=== PATIENT | female | born 1945 | race Caucasian/White ===

== ENCOUNTER → 2017-02-07 | Outpatient (CLI) | payer MEDICARE ==
--- NOTE | 2017-02-07 13:35 | MM ---
Reason for exam: screening (asymptomatic). Last mammogram was performed 1 year and 1 month ago. History: Patient is postmenopausal. Family history of premenopausal breast cancer in sister at age 40. Benign US right core biopsy of the right breast, August 09, 2005. Benign US right core biopsy of the right breast, August 09, 2005. Excisional biopsy of the left breast, November 26, 2003. Excisional biopsy of the right breast, November 26, 2003. Benign excisional biopsy of both breasts, 1970. Took hormonal contraceptives for 1 year beginning at age 23. Physical Findings: A clinical breast exam by your physician is recommended on an annual basis and results should be correlated with mammographic findings. MG Screening Mammo w CAD Bilateral CC and MLO view(s) were taken. Prior study comparison: January 17, 2016, bilateral MG screening mammo w CAD. December 30, 2014, bilateral MG screening mammo w CAD. The breast tissue is heterogeneously dense. This may lower the sensitivity of mammography. Stable benign calcifications. There is chronic nodularity bilaterally. There is no dominant lesion. No significant changes when compared with prior studies. ASSESSMENT: Benign, BI-RAD 2 RECOMMENDATION: Routine screening mammogram of both breasts in 1 year.
--- NOTE | 2017-02-07 13:44 | BD ---
EXAMINATION TYPE: MG DEXA axial skeleton. DATE OF EXAM: 02/07/2017 COMPARISON: NONE CLINICAL HISTORY: M81.0 Osteoporosis Height: 5 FT Weight: 134 FRAX RISK QUESTIONS: Alcohol (3 or more units per day): NO Family History (Parent hip fracture): NO Glucocorticoids (More than 3mos): NO (Ex: prednisone, prednisolone, methylprednisolone, dexamethasone, and hydrocortisone). History of Fracture in Adulthood: NO Secondary Osteoporosis: 1. Type 1 Diabetes: NO 2. Hyperthyroidism: NO 3. Menopause before 45: NO 4. Malnutrition: NO 5. Chronic liver disease: NO Rheumatoid Arthritis: NO Current Tobacco Use: NO RISK FACTORS HISTORY OF: Family History of Osteoporosis: YES Active: YES Postmenopausal woman: AGE 51 MEDICATIONS: Additional Medications: ASPIRIN, METFORMIN,BENICAR HCT, ATORVASTATIN, CALCIUM, IRON Additional History: EXAM MEASUREMENTS: Bone mineral densitometry was performed using the [employer] System. Bone mineral density as measured about the Lumbar spine is: ----- L1-L4(G/cm2): 1.157 T Score Values are as follows: ----- L2: -0.1 ----- L3: 0.3 ----- L4: -0.1 ----- L1-L4: -0.2 Bone mineral density has: INCREASED 2.5 % since study of: 2014 Bone mineral density about the R hip (g/cm2): 0.864 Bone mineral density about the L hip (g/cm2): 0.824 T Score values are as follows: -----R Neck: -1.3 -----L Neck: -1.5 -----R Total: -0.7 -----L Total: -0.9 Bone mineral density has: DECREASED -0.7% since study of: 2014 IMPRESSION: No evidence for osteoporosis or osteopenia NOTE: T-SCORE=SD OF THE YOUNG ADULT MEAN.
== END | disposition home or self-care (01) ==
LOC: RADMAMWWP 10:49
PROVIDERS: ATTEND Internal Medicine
DX: Z12.31 Encounter for screening mammogram for malignant neoplasm of breast (principal); M81.0 Age-related osteoporosis without current pathological fracture
CPT/HCPCS: 77080; G0202

== ENCOUNTER → 2018-03-03 | Outpatient (CLI) | payer MEDICARE ==
--- NOTE | 2018-03-06 17:02 | MM ---
Reason for exam: screening (asymptomatic). Last mammogram was performed 1 year and 1 month ago. History: Patient is postmenopausal. Family history of premenopausal breast cancer in sister at age 40. Benign US right core biopsy of the right breast, August 09, 2005. Benign US right core biopsy of the right breast, August 09, 2005. Excisional biopsy of the left breast, November 26, 2003. Excisional biopsy of the right breast, November 26, 2003. Benign excisional biopsy of both breasts, 1970. Took hormonal contraceptives for 1 year beginning at age 23. MG Screening Mammo w CAD Bilateral CC and MLO view(s) were taken. Prior study comparison: February 07, 2017, bilateral MG screening mammo w CAD. January 17, 2016, bilateral MG screening mammo w CAD. The breast tissue is heterogeneously dense. This may lower the sensitivity of mammography. There are benign-appearing bilateral calcifications. A right breast marker is noted. There is a focal asymmetry of the right breast upper outer quadrant at middle depth. To suspicious left breast abnormality. ASSESSMENT: Incomplete: need additional imaging evaluation, BI-RAD 0 RECOMMENDATION: Special view mammogram of the right breast.
== END | disposition home or self-care (01) ==
LOC: RADMAMWWP 10:45
PROVIDERS: ATTEND Internal Medicine
DX: Z12.31 Encounter for screening mammogram for malignant neoplasm of breast (principal)
CPT/HCPCS: 77067

== ENCOUNTER → 2018-03-19 | Outpatient (CLI) | payer MEDICARE ==
--- NOTE | 2018-03-21 12:03 | MM ---
Reason for exam: additional evaluation requested from abnormal screening. Last mammogram was performed 1 month ago. History: Patient is postmenopausal. Family history of premenopausal breast cancer in sister at age 40. Benign US right core biopsy of the right breast, August 09, 2005. Benign US right core biopsy of the right breast, August 09, 2005. Excisional biopsy of the left breast, November 26, 2003. Excisional biopsy of the right breast, November 26, 2003. Benign excisional biopsy of both breasts, 1970. Took hormonal contraceptives for 1 year beginning at age 23. Physical Findings: Nurse did not find any significant physical abnormalities on exam. MG Work Up Mamm w CAD RT Spot compression CC, spot compression MLO, and ML view(s) were taken of the right breast. Prior study comparison: March 03, 2018, bilateral MG screening mammo w CAD. February 07, 2017, bilateral MG screening mammo w CAD. The breast tissue is heterogeneously dense. This may lower the sensitivity of mammography. Previous mammotome biopsy in the right breast x 2 in upper outer quadrant and 12-12:30. There is chronic nodularity in the right breast. Nodular focal asymmetry 11-11:30 at a middle depth partially disperses on spot views. These results were verbally communicated with the patient and result sheet given to the patient on 03/19/18. ASSESSMENT: Incomplete: need additional imaging evaluation, BI-RAD 0 RECOMMENDATION: Ultrasound of both breasts. right targeted 11-11:30
--- NOTE | 2018-03-21 12:05 | USB ---
Reason for exam: additional evaluation requested from abnormal screening. History: Patient is postmenopausal. Family history of premenopausal breast cancer in sister at age 40. Benign US right core biopsy of the right breast, August 09, 2005. Benign US right core biopsy of the right breast, August 09, 2005. Excisional biopsy of the left breast, November 26, 2003. Excisional biopsy of the right breast, November 26, 2003. Benign excisional biopsy of both breasts, 1970. Took hormonal contraceptives for 1 year beginning at age 23. US Breast Workup Limited ANABELL Right limited breast ultrasound including focal area of concern, retroareolar and axilla demonstrates a 1.0 x 0.7 x 0.8cm oval, cystic lesion at 10 o'clock, benign, uncertain if this corresponds to the mammographic area of concern which was closer to 11 o'clock, 6 month follow up recommended. Left limited breast ultrasound including focal area of concern, retroareolar and axilla demonstrates a 1.6 x 1.0 x 1.5cm oval, palpable lesion at 12 o'clock BB, corresponds to benign fat necrosis seen on screening mammogram. These results were verbally communicated with the patient and result sheet given to the patient on 03/19/18. ASSESSMENT: Probably benign, BI-RAD 3 RECOMMENDATION: Follow-up diagnostic mammogram of the right breast in 6 months.
== END | disposition home or self-care (01) ==
LOC: RADMAMWWP 13:28
PROVIDERS: ATTEND Internal Medicine
DX: R92.8 Other abnormal and inconclusive findings on diagnostic imaging of breast (principal)
CPT/HCPCS: 77065

== ENCOUNTER → 2018-09-23 | Outpatient (CLI) | payer MEDICARE ==
--- NOTE | 2018-09-23 11:32 | MM ---
Reason for exam: additional evaluation requested from prior study. Last mammogram was performed 6 months ago. History: Patient is postmenopausal. Family history of premenopausal breast cancer in sister at age 40. Benign US right core biopsy of the right breast, August 09, 2005. Benign US right core biopsy of the right breast, August 09, 2005. Excisional biopsy of the left breast, November 26, 2003. Excisional biopsy of the right breast, November 26, 2003. Benign excisional biopsy of both breasts, 1970. Took hormonal contraceptives for 1 year beginning at age 23. Physical Findings: Nurse did not find any significant physical abnormalities on exam. MG Diagnostic Mammo RT w CAD CC and MLO view(s) were taken of the right breast. Prior study comparison: March 19, 2018, right breast MG work up mamm w CAD RT. March 03, 2018, bilateral MG screening mammo w CAD. The breast tissue is heterogeneously dense. This may lower the sensitivity of mammography. No new suspicious abnormality. Stable right upper outer quadrant focal asymmetry at middle depth 11 o'clock. No prior sonographic correlate. These results were verbally communicated with the patient and result sheet given to the patient on 09/23/18. ASSESSMENT: Probably benign, BI-RAD 3 RECOMMENDATION: Follow-up diagnostic mammogram of both breasts in 6 months. Back on schedule.
== END | disposition home or self-care (01) ==
LOC: RADMAMWWP 09:27
PROVIDERS: ATTEND Internal Medicine
DX: R92.2 Inconclusive mammogram (principal)
CPT/HCPCS: 77065

== ENCOUNTER → 2019-03-19 | Outpatient (CLI) | payer MEDICARE ==
--- NOTE | 2019-03-19 10:16 | MM ---
Reason for exam: follow-up at short interval from prior study. Last mammogram was performed 6 months ago. History: Patient is postmenopausal. Family history of premenopausal breast cancer in sister at age 40. Benign US right core biopsy of the right breast, August 09, 2005. Benign US right core biopsy of the right breast, August 09, 2005. Excisional biopsy of the left breast, November 26, 2003. Excisional biopsy of the right breast, November 26, 2003. Benign excisional biopsy of both breasts, 1970. Took hormonal contraceptives for 1 year beginning at age 23. Physical Findings: Nurse did not find any significant physical abnormalities on exam. MG Diagnostic Mammo w CAD ANABELL Bilateral CC and MLO view(s) were taken. Prior study comparison: September 23, 2018, right breast MG diagnostic mammo RT w CAD. March 19, 2018, right breast MG work up mamm w CAD RT. The breast tissue is heterogeneously dense. This may lower the sensitivity of mammography. Benign appearing bilateral calcifications. No suspicious abnormality. Right biopsy markers noted. These results were verbally communicated with the patient and result sheet given to the patient on 03/19/19. ASSESSMENT: Benign, BI-RAD 2 RECOMMENDATION: Routine screening mammogram of both breasts in 1 year.
== END | disposition home or self-care (01) ==
LOC: RADMAMWWP 09:27
PROVIDERS: ATTEND Internal Medicine
DX: R92.2 Inconclusive mammogram (principal)
CPT/HCPCS: 77066

== ENCOUNTER → 2019-09-29 | Outpatient (CLI) | payer MEDICARE ==
--- NOTE | 2019-09-29 14:53 | US ---
EXAMINATION TYPE: US kidneys/renal and bladder DATE OF EXAM: 09/29/2019 COMPARISON: 08/08/2015 CLINICAL HISTORY: Chronic kidney disease stage 3 N18.3. EXAM MEASUREMENTS: Right Kidney: 9.0 x 4.8 x 4.4 cm Left Kidney: 9.7 x 4.6 x 4.5 cm Right Kidney: No hydronephrosis or masses seen. Loss of corticomedullary differentiation Left Kidney: No hydronephrosis or masses seen. Loss of corticomedullary differentiation Bladder: wnl Bilateral Jets seen: Yes IMPRESSION: 1. 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 Correlate for chronic medical renal dise ase. 2. No hydronephrosis or nephrolithiasis. Previously described left renal cyst is not seen on today's exam.
== END | disposition home or self-care (01) ==
LOC: RADUSWWP 13:29
PROVIDERS: ATTEND Internal Medicine
DX: N18.3 Chronic kidney disease, stage 3 (moderate) (principal)
CPT/HCPCS: 76770

== ENCOUNTER → 2020-04-13 | Outpatient (CLI) | payer MEDICARE ==
--- NOTE | 2020-04-13 18:46 | BD ---
EXAMINATION TYPE: Axial Bone Density DATE OF EXAM: 04/13/2020 COMPARISON: 01/18/2017 CLINICAL HISTORY: Postmenopausal screening Height: 5 FT 1 IN Weight: 140 FRAX RISK QUESTIONS: Alcohol (3 or more units per day): NO Family History (Parent hip fracture): NO Glucocorticoids (More than 3mos): NO (Ex: prednisone, prednisolone, methylprednisolone, dexamethasone, and hydrocortisone). History of Fracture in Adulthood: NO Secondary Osteoporosis: 1. Type 1 Diabetes: NO 2. Hyperthyroidism: NO 3. Menopause before 45: NO 4. Malnutrition: NO 5. Chronic liver disease: NO Rheumatoid Arthritis: NO Current Tobacco Use: NO RISK FACTORS HISTORY OF: Family History of Osteoporosis: YES Active: YES Diet low in dairy products/other sources of calcium: NO Postmenopausal woman: AGE 51 Take estrogen and/or progesterone medications: NONE Lost more than 2 inches in height since high school: NO MEDICATIONS: Additional Medications: METFORMIN, ATORVASTATIN, BLOOD PRESSURE MEDS, ASPIRIN, Additional History: EXAM MEASUREMENTS: Bone mineral densitometry was performed using the [employer] System. Bone mineral density as measured about the Lumbar spine is: ----- L1-L4(G/cm2): 1.128 T Score Values are as follows: ----- L2: -0.9 ----- L3: 0.1 ----- L4: -0.4 ----- L1-L4: -0.4 Bone mineral density has: DECREASED -3.9 % since study of: 2016 Bone mineral density about the R hip (g/cm2): 0.833 Bone mineral density about the L hip (g/cm2): 0.849 T Score values are as follows: -----R Neck: -1.5 -----L Neck: -1.4 -----R Total: -1.1 -----L Total: -0.9 Bone mineral density has: DECREASED -2.5 % since study of: 2016 IMPRESSION: Osteopenia (T Score between -2.5 and -1). There is slightly increased risk of fracture and the patient may be considered for treatment. Re-Screen 2-5 years. NOTE: T-SCORE=SD OF THE YOUNG ADULT MEAN.
== END | disposition home or self-care (01) ==
LOC: RADBDWWP 09:14
PROVIDERS: ATTEND Internal Medicine
DX: M85.80 Other specified disorders of bone density and structure, unspecified site (principal); M81.0 Age-related osteoporosis without current pathological fracture
CPT/HCPCS: 77080

== ENCOUNTER → 2020-05-16 | Outpatient (CLI) | payer MEDICARE ==
--- NOTE | 2020-05-19 11:03 | MM ---
Reason for exam: screening (asymptomatic). Last mammogram was performed 1 year and 2 months ago. History: Patient is postmenopausal. Family history of premenopausal breast cancer in sister at age 40. Benign US right core biopsy of the right breast, August 09, 2005. Benign US right core biopsy of the right breast, August 09, 2005. Excisional biopsy of the left breast, November 26, 2003. Excisional biopsy of the right breast, November 26, 2003. Benign excisional biopsy of both breasts, 1970. Took hormonal contraceptives for 1 year beginning at age 23. Physical Findings: A clinical breast exam by your physician is recommended on an annual basis and results should be correlated with mammographic findings. MG Screening Mammo w CAD Bilateral CC and MLO view(s) were taken. Prior study comparison: March 19, 2019, bilateral MG diagnostic mammo w CAD ANABELL. September 23, 2018, right breast MG diagnostic mammo RT w CAD. The breast tissue is heterogeneously dense. This may lower the sensitivity of mammography. Previous mammotome biopsy in the right breast x 2. Stable bilateral breast complexity with areas of nodularity and asymmetric densities. Chronic fat necrosis calcifications on the left. No significant changes when compared with prior studies. ASSESSMENT: Benign, BI-RAD 2 RECOMMENDATION: Routine screening mammogram of both breasts in 1 year.
== END | disposition home or self-care (01) ==
LOC: RADMAMWWP 14:51
PROVIDERS: ATTEND Internal Medicine
DX: Z12.31 Encounter for screening mammogram for malignant neoplasm of breast (principal)
CPT/HCPCS: 77067

== ENCOUNTER → 2021-04-27 | Outpatient (CLI) | payer MEDICARE ==
--- NOTE | 2021-04-27 09:42 | CT ---
EXAMINATION TYPE: CT chest wo con DATE OF EXAM: 04/27/2021 INDICATION: HYPERVITAMINOSIS D CT DLP: 535 mGy.cm Automated Exposure Control for Dose Reduction was Utilized. TECHNIQUE AND CONTRAST: CT scan of the chest without IV contrast administration. COMPARISON: No previous CT scan is available for comparison. FINDINGS: Minimal bilateral linear basal pulmonary atelectasis. Minimal bilateral apical fibrotic changes. Unre markable lungs otherwise. No sizable pleural effusion or definite pneumothorax. Patent central airway s. No gross cardiomegaly. Arterial atherosclerotic calcification with coronary arterial calcifications. No pericardial effusion . No pathologically enlarged lymph nodes in the chest. Slightly dilated inferior aspect of the esopha luna without wall thickening, nonspecific. Cortical hyperdense lesion is seen arising from the medial aspect of the right kidney measuring up to 10 x 16 mm, incompletely characterized and could represent a hemorrhagic cyst however solid lesion c an't be excluded. Recommend further ultrasound assessment. Previous cholecystectomy. Fatty infiltration of the pancreatic head. Bilateral breast calcifications, please correlate with breast ultrasound/mammography results. Multilevel vertebral body hemangiomas. No aggressive bone lesion. IMPRESSION: 1. No significant pulmonary abnormality or thoracic lymphadenopathy. 2. Right renal cortical hyperdense lesion as described above, incompletely characterized and could re present a hemorrhagic cyst however solid lesion cannot be excluded. Recommend further targeted ultras ound assessment. If inconclusive, further CT scan (renal protocol) or renal MRI can be considered. Ot her incidental findings as described above. A [place] level critical message alert has been initiated for Stephan Head MD via the [employer] Critical Results System on 04/27/2021 9:40 AM. This message alert has been sent to Setphan Head MD via the preferences provided by the clinician for the receipt of Radiology Critical Findings. Message ID [id number].
== END | disposition home or self-care (01) ==
LOC: RADCTMAIN 09:00
PROVIDERS: ATTEND Internal Medicine
DX: E67.3 Hypervitaminosis D (principal)
CPT/HCPCS: 71250

== ENCOUNTER → 2021-05-04 | Outpatient (CLI) | payer MEDICARE ==
--- NOTE | 2021-05-04 14:43 | CT ---
EXAMINATION TYPE: CT heart w calcium score DATE OF EXAM: 05/04/2021 COMPARISON: Chest CT one week ago. HISTORY: Screening for cardiovascular disorder. 213.9 CT DLP: 47.1 mGycm Automated exposure control for dose reduction was used. CT CALCIUM SCORING Coronary calcium is a marker for plaque (fatty deposits) in a blood vessel or atherosclerosis (harden ing of the arteries). The presence and amount of calcium detected in a coronary artery by the CT sca n, indicates the presence and amount of atherosclerotic plaque. These calcium deposits appear years before the development of heart disease symptoms such as chest pain and shortness of breath. A calcium score is computed for each of the coronary arteries based upon the volume and density of th e calcium deposits. This can be referred to as your calcified plaque burden. It does not correspond directly to the percentage of narrowing in the artery but does correlate with the severity of the un derlying coronary atherosclerosis. PROCEDURE TECHNIQUE - Prospective Gating was used. Slice thickness: 3mm. Density threshold (HU): 130, Pixel threshold: 3, Algorithm: discrete. RESULTS Region: LM Calcium Score ([place]at[place]): 0 Volume (mm3): 0 Mass (g): 0 Region: RCA Calcium Score ([place]): 0 Volume (mm3): 0 Mass (g): 0 Region: LAD Calcium Score ([place]at[place]): 261.52 Volume (mm3): 196.56 Mass (g): 65.52 Region: CX Calcium Score ([place]at[place]): 0 Volume (mm3): 0 Mass (g): 0 Region: PDA Calcium Score ([place]atston): 0 Volume (mm3): 0 Mass (g): 0 Total: Calcium Score (Agatston): 261.52 Volume (mm3): 196.56 Mass (g): 65.52 Incidental findings: None. IMPRESSION: Calcium Score: 101-400 Implication: Definite, at least moderate atherosclerotic plaque. Risk of Coronary Artery Disease: Mild coronary artery disease highly likely, significant narrowings p ossible CALCIUM SCORE IMPLICATION RISK OF C ORONARY ARTERY DISEASE 0 No identifiable plaque Very low, generally less than 5% 1-10 Minimal identifiable plaque Very unlikely, less than 10% 11-100 Definite, at least mild atherosclerotic plaque Mild or m inimal coronary narrowings likely 101-400 Definite, at least moderate atherosclerotic plaque Mild coronary ar dori disease highly likely, significant narrowing possible 401 or Higher Extensive atherosclerotic plaque High lik elihood of at least one significant coronary narrowing
== END | disposition home or self-care (01) ==
LOC: RADCTMAIN 14:03
PROVIDERS: ATTEND Internal Medicine
DX: Z13.6 Encounter for screening for cardiovascular disorders (principal); I25.10 Atherosclerotic heart disease of native coronary artery without angina pectoris
CPT/HCPCS: 75571

== ENCOUNTER → 2021-05-30 | Outpatient (CLI) | payer MEDICARE ==
--- NOTE | 2021-05-30 15:51 | US ---
EXAMINATION TYPE: US kidneys/renal and bladder DATE OF EXAM: 05/30/2021 COMPARISON: 09/29/2019 CLINICAL HISTORY: 75-year-old female N28.9 DISORDER KIDNEY AND URETER. TECHNIQUE: Multiple sonographic images of the kidneys and bladder are obtained. FINDINGS: EXAM MEASUREMENTS: Right Kidney: 9.7 x 4.7 x 3.6 cm Left Kidney: 9.5 x 4.5 x 3.5 cm Right Kidney: echogenic, thin renal cortex. No hydronephrosis. Left Kidney: Renal cortical thinning. There is a lower pole cortical cyst measuring 1.7 x 1.7 x 2.0cm Bladder: wnl Bilateral Jets seen: no IMPRESSION: Changes of bilateral chronic medical renal disease. No hydronephrosis. Benign 2.0 cm cortical cyst lo wer pole left kidney.
== END | disposition home or self-care (01) ==
LOC: RADUSWWP 12:07
PROVIDERS: ATTEND Internal Medicine
DX: N28.9 Disorder of kidney and ureter, unspecified (principal)
CPT/HCPCS: 76770

== ENCOUNTER → 2021-06-08 | Outpatient (CLI) | payer MEDICARE ==
--- NOTE | 2021-06-09 14:26 | MM ---
Reason for exam: screening (asymptomatic). Last mammogram was performed 1 year and 1 month ago. History: Patient is postmenopausal. Family history of premenopausal breast cancer in sister at age 40. Benign US right core biopsy of the right breast, August 09, 2005. Benign US right core biopsy of the right breast, August 09, 2005. Excisional biopsy of the left breast, November 26, 2003. Excisional biopsy of the right breast, November 26, 2003. Benign excisional biopsy of both breasts, 1970. Took hormonal contraceptives for 1 year beginning at age 23. Physical Findings: A clinical breast exam by your physician is recommended on an annual basis and results should be correlated with mammographic findings. MG 3D Screening Mammo W/Cad Bilateral CC and MLO view(s) were taken. Prior study comparison: May 16, 2020, bilateral MG screening mammo w CAD. March 19, 2019, bilateral MG diagnostic mammo w CAD ANABELL. The breast tissue is heterogeneously dense. This may lower the sensitivity of mammography. No significant changes when compared with prior studies. ASSESSMENT: Benign, BI-RAD 2 RECOMMENDATION: Routine screening mammogram of both breasts in 1 year.
== END | disposition home or self-care (01) ==
LOC: RADMAMWWP 10:01
PROVIDERS: ATTEND Internal Medicine
DX: Z12.31 Encounter for screening mammogram for malignant neoplasm of breast (principal)
CPT/HCPCS: 77063; 77067

== ENCOUNTER 2022-01-16 07:54 | Day surgery (SDC) | payer MEDICARE ==
[2022-01-10 08:49] VITALS: BMI 26.5
[2022-01-16] MEDS ORDERED: LACTATED RINGERS 1,000 ML IV SCH (08:17)
[2022-01-16 08:38] VITALS: TEMP 97.9
[2022-01-16 08:54] LABS: Glucose,Whole Blood 99 mg/dL (70-110)
[2022-01-16] MEDS ORDERED: PROPOFOL 10 MG/ML 20 ML VIAL IV ONE (09:30)
--- NOTE | 2022-01-16 09:51 | P.PCN ---
Date of Procedure: 01/16/22 Procedure(s) Performed: BRIEF HISTORY: Patient is a 76-year-old pleasant white female scheduled for an elective colonoscopy as a part of screening for colon cancer/positive cologuard. PROCEDURE PERFORMED: Colonoscopy with snare polypectomy. PREOPERATIVE DIAGNOSIS: Screening for colon cancer/positive cologuard. IV sedation per Anesthesia. PROCEDURE: After informed consent was obtained, the patient, was brought into the endoscopy unit. IV sedation was administered by Anesthesia under continuous monitoring. Digital rectal examination was normal. Initially the Olympus CF-160 flexible video colonoscope was then inserted in the rectum, gradually advanced into the cecum without any difficulty. Careful examination was performed as the scope was gradually being withdrawn. Ileocecal valve and the appendiceal orifice were visualized and appeared normal. Prep was excellent. Mucosa of the cecum, appeared normal. In the ascending colon there was a 3-4 mm polyp that was removed by snare polypectomy. Rest of the ascending colon, transverse colon appeared normal. In the distal transverse colon there was a 7-8 mm sessile polyp removed by snare polypectomy. Rest of the, descending colon, sigmoid colon, and rectum appeared normal. Retroflexion was performed in the rectum and small internal hemorrhoids were seen. The patient tolerated the procedure well. IMPRESSION: 3-4 mm ascending colon polyp status post polypectomy 7-8 mm transverse colon polyp status post polypectomy Small internal hemorrhoids RECOMMENDATIONS: Findings of this examination were discussed with the patient well as her family. She was advised to follow with the biopsy results. If the biopsy reveals adenoma she can have a repeat colonoscopy in 5 years.
[2022-01-16 09:53] VITALS: RESP 16
[2022-01-16 10:07] VITALS: BP 133/66; PULSE 81
== END 2022-01-16 10:42 | disposition home or self-care (01) ==
LOC: ORWHC2ENDO 07:54
PROVIDERS: ATTEND Internal Medicine Gastroenterology
DX: Z12.11 Encounter for screening for malignant neoplasm of colon (principal); D12.2 Benign neoplasm of ascending colon; D12.3 Benign neoplasm of transverse colon; K64.8 Other hemorrhoids; I10 Essential (primary) hypertension; E11.9 Type 2 diabetes mellitus without complications; E78.5 Hyperlipidemia, unspecified; Z79.84 Long term (current) use of oral hypoglycemic drugs; Z79.899 Other long term (current) drug therapy
CPT/HCPCS: 88305; 45385; J2704

== ENCOUNTER → 2022-06-11 | Outpatient (CLI) | payer MEDICARE ==
--- NOTE | 2022-06-12 07:51 | MM ---
Reason for Exam: Screening (asymptomatic). Last screening mammogram was performed 12 month(s) ago. Patient History: Menarche at age 13. First Full-Term at age 24. Postmenopausal. Hormonal Contraceptives for 1 year from age 23 until age 24. 11/26/2003, Excisional Biopsy on the Right side. 11/26/2003, Excisional Biopsy on the Left side. 1970, Bilateral Benign Excisional Biopsy. 08/09/2005, Benign Core Biopsy on the right side. 08/09/2005, Benign Core Biopsy on the right side. Sister had breast cancer, age 40. Risk Values: Anna 5 year model risk: 5.0%. NCI Lifetime model risk: 10.0%. Prior Study Comparison: 03/19/2019 Bilateral Diagnostic Mammogram, [facility]. 05/16/2020 Bilateral Screening Mammogram, [facility]. 06/08/2021 Bilateral Screening Mammogram, [facility]. Tissue Density: The breast tissue is heterogeneously dense. This may lower the sensitivity of mammography. Findings: Analyzed By CAD. Stable benign calcifications and there is chronic nodularity. No suspicious calcifications or masses seen. Overall Assessment: Benign, BI-RAD 2 Management: Screening Mammogram of both breasts in 1 year. A clinical breast exam by your physician is recommended on an annual basis and results should be correlated with mammographic findings. Electronically signed and approved by: Derek España M.D. Radiologis
== END | disposition home or self-care (01) ==
LOC: RADMAMWWP 09:13
PROVIDERS: ATTEND Internal Medicine
DX: Z12.31 Encounter for screening mammogram for malignant neoplasm of breast (principal); Z80.3 Family history of malignant neoplasm of breast; Z78.0 Asymptomatic menopausal state; Z98.890 Other specified postprocedural states
CPT/HCPCS: 77063; 77067

== ENCOUNTER → 2022-10-19 | Outpatient (CLI) | payer MEDICARE ==
--- NOTE | 2022-10-19 10:03 | US ---
EXAMINATION TYPE: US thyroid st tissue head/neck DATE OF EXAM: 10/19/2022 COMPARISON: Carotid ultrasound 09/07/2022 CLINICAL INDICATION: Female, 77 years old with history of E04.1 THYROID NODULE; thy nodules GLAND SIZE: Right Lobe: 4.9 x 1.7 x 1.9 cm Overall Parenchyma: homogenous Left Lobe: 5.7 x 1.5 x 1.6 cm Overall Parenchyma: homogeneous Isthmus Thickness: 0.3 cm NODULES RIGHT: # of nodules measured on right: 1 1. 1.6 X .9 x 1.4 cm, lower , mixed cystic and solid, hypoechoic nodule, which is wider than tall, with smooth margins, without echogenic foci. Prior size: no prior LEFT: # of nodules measured on left: 1 1. 1.1 X .8 x .9 cm, lower , cystic or almost completely cystic, anechoic nodule, which is wider th an tall, with smooth margins, without echogenic foci. Prior size: no prior ISTHMUS: # of nodules measured in the isthmus: 0 Bilateral neck scanned, no evidence of lymphadenopathy. IMPRESSION: 1. Right thyroid lobe 1.6 cm TR 3 nodule. 2. Left thyroid lobe 1.1 cm TR1 nodule. 2017 ACR TI-RADS LEVEL: TR-RADS 3 - Mildly Suspicious: Follow if > 1.5 cm, FNA if > 2.5 cm *Highest TI-RADS level nodule reported
== END | disposition home or self-care (01) ==
LOC: RADUSWWP 08:14
PROVIDERS: ATTEND Internal Medicine
DX: E04.1 Nontoxic single thyroid nodule (principal)
CPT/HCPCS: 76536

== ENCOUNTER 2022-12-04 12:21 | Day surgery (SDC) | payer MEDICARE ==
[2022-12-04 13:34] VITALS: PULSE 87; TEMP 98.3
--- NOTE | 2022-12-04 14:16 | US ---
ULTRASOUND GUIDED FNA THYROID BIOPSY: CLINICAL HISTORY: Right thyroid nodule FINDINGS: The procedure was explained to the patient. The risks, complications, benefits and alternatives were discussed and any questions were answered. Informed consent was obtained. Patient was placed supin e on the ultrasound table and prepped and draped in the usual sterile fashion. Utilizing a 25 gauge needle, five passes were made into the requested right thyroid nodule. Patient was stable throughout the procedure. Pathology is pending. All elements of maximal barrier technique were utilized. IMPRESSION: 1. Successful ultrasound guided FNA thyroid biopsy.
[2022-12-04 14:34] VITALS: BP 164/72; RESP 18
== END 2022-12-04 14:10 | disposition home or self-care (01) ==
LOC: RADPROMAIN 12:21
PROVIDERS: ATTEND Internal Medicine
DX: E04.1 Nontoxic single thyroid nodule (principal)
CPT/HCPCS: 10005; 88173; 88305

== ENCOUNTER → 2023-06-13 | Outpatient (CLI) | payer MEDICARE ==
--- NOTE | 2023-06-17 09:44 | MM ---
Reason for Exam: Screening (asymptomatic). Last screening mammogram was performed 12 month(s) ago. Patient History: Menarche at age 13. First Full-Term at age 24. Postmenopausal. Hormonal Contraceptives for 1 year from age 23 until age 24. 11/26/2003, Excisional Biopsy on the Right side. 11/26/2003, Excisional Biopsy on the Left side. 1970, Bilateral Benign Excisional Biopsy. 08/09/2005, Benign Core Biopsy on the right side. 08/09/2005, Benign Core Biopsy on the right side. Sister had breast cancer, age 40. Risk Values: Anna 5 year model risk: 3.1%. NCI Lifetime model risk: 6.1%. Prior Study Comparison: 02/07/2017 Bilateral Screening Mammogram, [facility]. 03/03/2018 Bilateral Screening Mammogram, [facility]. 03/19/2018 Right Diagnostic Mammogram, [facility]. 09/23/2018 Right Diagnostic Mammogram, [facility]. 03/19/2019 Bilateral Diagnostic Mammogram, [facility]. 05/16/2020 Bilateral Screening Mammogram, [facility]. 06/08/2021 Bilateral Screening Mammogram, [facility]. 06/11/2022 Bilateral MG 3D screening mammo w/cad, [facility]. Tissue Density: The breasts are heterogeneously dense, which may obscure small masses. Findings: Analyzed By CAD. There is no suspicious group of microcalcifications or new suspicious mass in either breast. Benign appearing calcifications. Surgical clips and chronic nodularity right breast stable. Overall Assessment: Benign, BI-RAD 2 Management: Screening Mammogram of both breasts in 1 year. . Patient should continue monthly self-breast exams. A clinical breast exam by your physician is recommended on an annual basis. This exam should not preclude additional follow-up of suspicious palpable abnormalities. Note on Anna scores and lifetime risk: 1. A Anna score greater than 3% is considered moderate risk. If this is the case, consider specialist referral to assess eligibility for a risk reducing agent. 2. If overall lifetime risk for the development of breast cancer is 20% or higher, the patient may qualify for future screening with alternating mammogram and breast MRI. Electronically signed and approved by: Domingo Recinos M.D. Radiologis
== END | disposition home or self-care (01) ==
LOC: RADMAMWWP 09:28
PROVIDERS: ATTEND Internal Medicine
DX: Z12.31 Encounter for screening mammogram for malignant neoplasm of breast (principal); Z78.0 Asymptomatic menopausal state; Z80.3 Family history of malignant neoplasm of breast
CPT/HCPCS: 77063; 77067

== ENCOUNTER → 2024-01-01 | Outpatient (CLI) | payer MEDICARE ==
--- NOTE | 2024-01-01 12:43 | XR ---
EXAMINATION TYPE: XR ankle complete RT DATE OF EXAM: 01/01/2024 11:47 AM COMPARISON: None CLINICAL INDICATION: Female, 78 years old with history of M10.371 Acute Gout; [facility] TECHNIQUE: XR ankle complete RT; ankle is imaged in frontal, lateral and oblique projections. FINDINGS: There is no evidence of acute osseous pathology. No evidence of subluxation or dislocation. Kager's fat pad is intact. Mild soft tissue swelling around the ankle. No radiopaque foreign bodies are ident ified. IMPRESSION: 1. No evidence of acute fracture. 2. Subcutaneous swelling around the ankle which could be due to injury versus secondary to gout. Bruna elate with serum markers. [facility], , 01/01/2024 12:41 PM
== END | disposition home or self-care (01) ==
LOC: RADXRMAIN 11:25
PROVIDERS: ATTEND Internal Medicine
DX: M10.371 Gout due to renal impairment, right ankle and foot (principal); M25.471 Effusion, right ankle

== ENCOUNTER → 2024-06-03 | Outpatient (CLI) | payer MEDICARE ==
[2024-06-03 15:57] LABS: Basophils # (A) 0.02 X 10*3/uL (0.00-0.10); Basophils % (A) 0.2 %; Eosinophils # (A) 0.41 X 10*3/uL (0.04-0.35); Eosinophils % (A) 3.5 %; HCT 25.5 % (37.2-46.3); HGB 8.2 g/dL (12.0-15.0); Lymphocytes # (A) 1.18 X 10*3/uL (0.90-5.00); Lymphocytes % (A) 10.1 %; MCH 31.4 pg (27.0-32.0); MCHC 32.2 g/dL (32.0-37.0); MCV 97.7 FL (80.0-97.0); Mean Platelet Volume 11.2 FL (9.5-12.2); Monocytes # (A) 0.73 X 10*3/uL (0.20-1.00); Monocytes % (A) 6.3 %; NRBC Per 100 WBC 0 X 10*3/uL (0.00-0.01); Neutrophils # (A) 9.21 X 10*3/uL (1.80-7.70); Neutrophils % (A) 79.1 %; Platelet Count 189 X 10*3/uL (140-440); RBC 2.61 X 10*6/uL (4.10-5.20); RDW 14.2 % (11.5-14.5); WBC 11.64 X 10*3/uL (4.50-10.00)
[2024-06-03 15:59] LABS: Amylase 51 U/L (23-121); Lipase 44 U/L (14-63)
[2024-06-03 16:00] LABS: ALT 13 U/L (8-44); AST 21 U/L (13-35); Albumin 3.7 g/dL (3.8-4.9); Albumin/Globulin Ratio 1.32 Ratio (1.60-3.17); Alkaline Phosphatase 89 U/L (41-126); BUN/Creat Ratio 18.75 Ratio (12.00-20.00); Blood Urea Nitrogen 37.5 mg/dL (9.0-27.0); Carbon Dioxide 24.5 mmol/L (21.6-31.8); Chloride 102 mmol/L (96-109); Globulin 2.8 g/dL (1.6-3.3); Glucose 113 mg/dL (70-110); Potassium 4.5 mmol/L (3.5-5.5); Sodium 139 mmol/L (135-145); Total Bilirubin 0.3 mg/dL (0.3-1.2); Total Protein 6.5 g/dL (6.2-8.2)
== END | disposition home or self-care (01) ==
LOC: LABWHC1 11:53
PROVIDERS: ATTEND Internal Medicine
DX: R19.7 Diarrhea, unspecified (principal)
CPT/HCPCS: 36415; 80053; 82150; 83690; 85025; 87045; 87046; 87328; 87329

== ENCOUNTER 2024-06-24 13:01 | Inpatient (IN) | payer MEDICARE ==
--- NOTE | 2024-06-24 14:17 | ED ---
General Adult HPI - General Chief complaint: Urogenital Stated complaint: blood in urine, vomiting Time Seen by Provider: 06/24/24 13:18 Source: patient, RN notes reviewed Mode of arrival: wheelchair Limitations: no limitations - History of Present Illness Initial comments: 78-year-old female presented to emergency department for complaints of nausea, vomiting, and hematuria. Patient states that yesterday morning she began to experience right flank pain and this morning when she woke up the pain was in the right front of her abdomen. Patient also notes that she experienced gross hematuria this morning and a fever of 102. She has been feeling nauseous and has had multiple episodes of emesis. Over the past few days she states that she has been having increasing urinary frequency and urgency. She denies chest pain, difficulty breathing, heart palpitations, dizziness or lightheadedness. States that the flank pain has resolved and is currently complaining of mild right anterior abdominal pain. - Related Data Home Medications Medication Instructions Recorded Confirmed Ascorbic Acid [Vitamin C] 500 mg PO DAILY 01/10/22 12/04/22 Aspirin EC [Ecotrin Low Dose] 2 tab PO DAILY 01/10/22 12/04/22 Atorvastatin [Lipitor] 20 mg PO TUFR 01/10/22 12/04/22 Calcium Carbonate/Vitamin D3 1 each PO BID 01/10/22 12/04/22 [Calcium 500 mg-Vit D3 5 mcg (200 Unit)] Dapagliflozin Propanediol [Farxiga] 5 mg PO DAILY 01/10/22 12/04/22 Ferrous Sulfate [Feosol] 325 mg PO BID 01/10/22 12/04/22 Multivit-Min/Iron/Folic/Lutein 1 each PO DAILY 01/10/22 12/04/22 [Centrum Silver Women Tablet] Olmesartan/Hydrochlorothiazide 1 each PO DAILY 01/10/22 12/04/22 [Olmesartan-Hctz 40-12.5 mg Tab] Pioglitazone [Actos] 30 mg PO DAILY 01/10/22 12/04/22 Allergies Allergy/AdvReac Type Severity Reaction Status Date / Time sitagliptin [From ] AdvReac Diarrhea Verified 06/24/24 13:06 Review of Systems ROS Statement: Those systems with pertinent positive or pertinent negative responses have been documented in the HPI. ROS Other: All systems not noted in ROS Statement are negative. Past Medical History Past Medical History: Diabetes Mellitus, Eye Disorder, Hyperlipidemia, Hypertension, Thyroid Disorder Additional Past Medical History / Comment(s): low iron. CATARACT LT EYE History of Any Multi-Drug Resistant Organisms: None Reported Past Surgical History: Breast Surgery, Cholecystectomy, Tonsillectomy Additional Past Surgical History / Comment(s): CYSTS REMOVED FROM BILAT BREASTS. CATARACT RT EYE REMOVED WITH LENS IMPLANTS Past Anesthesia/Blood Transfusion Reactions: No Reported Reaction Past Psychological History: No Psychological Hx Reported Smoking Status: Never smoker Past Alcohol Use History: None Reported Past Drug Use History: None Reported - Past Family History Sister(s) Family Medical History: Cancer Brother(s) Family Medical History: Cancer Additional Family Medical History / Comment(s): 2 BROTHERS WITH CANCER General Exam Limitations: no limitations Course Vital Signs 06/24/24 06/24/24 06/24/24 13:04 16:13 17:21 Temperature 103 F H 102.9 F H 101.5 F H Pulse Rate 127 H 118 H 107 H Respiratory 18 18 18 Rate Blood Pressure 110/52 92/56 97/57 O2 Sat by Pulse 95 98 94 L Oximetry Medical Decision Making - Medical Decision Making Was pt. sent in by a medical professional or institution (, PA, RECORD CHANGER TESTER, urgent care, hospital, or [facility]...) When possible be specific @ -No Did you speak to anyone other than the patient for history (EMS, parent, family, police, friend...)? What history was obtained from this source @ -No Did you review nursing and triage notes (agree or disagree)? Why? @ -I reviewed and agree with nursing and triage notes Were old charts reviewed (outside hosp., previous admission, EMS record, old EKG, old radiological studies, urgent care reports/EKG's, [facility] records)? Report findings @ -No old charts were reviewed Differential Diagnosis (chest pain, altered mental status, abdominal pain women, abdominal pain men, vaginal bleeding, weakness, fever, dyspnea, syncope, headache, dizziness, GI bleed, back pain, seizure, CVA, palpatations, mental health, musculoskeletal)? @ -Differential Abdominal Pain Women: Appendicitis, Cholecystitis, diverticulosis, ischemic bowel, pancreatitis, hepatitis, UTI, gastroenteritis, AAA, incarcerated hernia, bowel obstruction, constipation, inflammatory bowel, hepatitis, peptic ulcer disease, splenic infarction, perforated viscus, vulvitis, ovarian torsion, PID, kidney stone, placenta abruption, this is not meant to be an all-inclusive list EKG interpreted by me (3pts min.). @ -Completed at 1435 sinus tachycardia with a ventricular rate of 119, TX interval 167, QRS 78, QT 290, QTc 360. X-rays interpreted by me (1pt min.). @ -None done CT interpreted by me (1pt min.). @ -CT of the abdomen pelvis without contrast reveals a marked strand-like density in the right perirenal space with no definitive calcification in the right collecting system or ureter with no evidence of hydronephrosis U/S interpreted by me (1pt. min.). @ -None done What testing was considered but not performed or refused? (CT, X-rays, U/S, lab s)? Why? @ -None What meds were considered but not given or refused? Why? @ -None Did you discuss the management of the patient with other professionals (professionals i.e. , PA, RECORD CHANGER TESTER, lab, RT, psych nurse, rn social work, computer assistant, teacher, founder and chief technical officer, telehealth case manager)? Give summary @ -I spoke with patient's primary care provider, Dr. Head, was agreed to admit the patient and recommend that urology and infectious disease consults placed. Was smoking cessation discussed for >3mins.? @ -No Was critical care preformed (if so, how long)? @ -No Were there social determinants of health that impacted care today? How? (Homelessness, low income, unemployed, alcoholism, drug addiction, transportation, low edu. Level, literacy, decrease access to med. care, assisted, rehab)? @ -No Was there de-escalation of care discussed even if they declined (Discuss DNR or withdrawal of care, Hospice)? DNR status @ -No What co-morbidities impacted this encounter? (DM, HTN, Smoking, COPD, CAD, Cancer, CVA, ARF, Chemo, Hep., AIDS, mental health diagnosis, sleep apnea, morbid obesity)? @ -None Was patient admitted / discharged? Hospital course, mention meds given and route, prescriptions, significant lab abnormalities, going to OR and other pertinent info. @ -Admitted. 78-year-old female presenting to the emergency department for complaints of hematuria, nausea and vomiting. Patient is febrile on arrival and tachycardic with a heart rate of 103 and pulse of 127. Blood pressure is stable. Patient meets emergency criteria and is mainly provided with a 1000 units IV push of Rocephin after blood cultures are obtained and is provided with 1600 cc LR fluid bolus. On evaluation patient has mild abdominal tenderness to exam. She is provided with dose of Tylenol for fever. Laboratory testing reveals leukocytosis of 16.56 with left shift neutrophils of 15.6, hemoglobin of 8.2 which appears chronic for the patient. CMP reveals an MYKE with a creatinine of 1.66 and a BUN of 29 with a GFR of 29. Urinalysis unable to be completed full chemical panel as appearance is dark red with large amount of blood. CT reveals marked stranding density of the right perirenal space with no definitive calcification. With concern for pyelonephritis and sepsis patient will be admit shima and started on IV antibiotics with continue maintenance fluids and Tylenol as needed for fevers and pain relief. I placed consult orders to infectious disease and urology. Undiagnosed new problem with uncertain prognosis? @ -No Drug Therapy requiring intensive monitoring for toxicity (Heparin, Nitro, Insulin, Cardizem)? @ -No Were any procedures done? @ -No Diagnosis/symptom? @ -Pyelonephritis, sepsis Acute, or Chronic, or Acute on Chronic? @ -Acute Uncomplicated (without systemic symptoms) or Complicated (systemic symptoms)? @ -Complicated Side effects of treatment? @ -No Exacerbation, Progression, or Severe Exacerbation? @ -No Poses a threat to life or bodily function? How? (Chest pain, [place], [place], pneumonia, PE, COPD, DKA, ARF, appy, cholecystitis, CVA, Diverticulitis, Homicidal, Suicidal, threat to staff... and all critical care pts) @ -No - Lab Data Result diagrams: 06/24/24 15:15 06/24/24 15:15 Lab Results 06/24/24 06/24/24 06/24/24 Range/Units 15:15 15:15 15:15 WBC 16.56 H (4.50-10.00) 10*3/uL RBC 2.59 L (4.10-5.20) 10*6/uL Hgb 8.2 L (12.0-15.0) g/dL Hct 24.9 L (37.2-46.3) % MCV 96.1 (80.0-97.0) fL MCH 31.7 (27.0-32.0) pg MCHC 32.9 (32.0-37.0) g/dL Plt Count 152 (140-440) 10*3/uL MPV 10.6 (9.5-12.2) fL Immature Gran % (Auto) 0.7 % Neutrophils % 94.4 % Lymphocytes % 1.6 % Monocytes % 3.1 % Eosinophils % 0.0 % Basophils % 0.2 % Immature Gran # 0.12 H (0.00-0.04) 10*3/uL Neutrophils # 15.63 H (1.80-7.70) 10*3/uL Lymphocytes # 0.27 L (0.90-5.00) 10*3/uL Monocytes # 0.51 (0.20-1.00) 10*3/uL Eosinophils # 0.00 L (0.04-0.35) 10*3/uL Basophils # 0.03 (0.00-0.10) 10*3/uL PT 11.4 (10.0-12.5) sec INR 1.0 (<1.2) APTT 22.8 (22.0-30.0) sec Sodium 137 (137-145) mmol/L Potassium 3.8 (3.5-5.1) mmol/L Chloride 101 (98-107) mmol/L Carbon Dioxide 25 (22-30) mmol/L Anion Gap 11 mmol/L BUN 29 H (7-17) mg/dL Creatinine 1.66 H (0.52-1.04) mg/dL Est GFR (CKD-EPI)AfAm 34 (>60 ml/min/1.73 sqM) Est GFR (CKD-EPI)NonAf 29 (>60 ml/min/1.73 sqM) Glucose 153 H (74-99) mg/dL Plasma Lactic Acid Kwame (0.7-2.0) mmol/L Calcium 10.3 H (8.4-10.2) mg/dL Total Bilirubin 0.9 (0.2-1.3) mg/dL AST 23 (14-36) U/L ALT 14 (4-34) U/L Alkaline Phosphatase 77 (38-126) U/L Total Protein 6.2 L (6.3-8.2) g/dL Albumin 3.6 (3.5-5.0) g/dL Urine Color Urine Appearance (Clear) Urine RBC (0-5) /hpf Urine WBC (0-5) /hpf Urine WBC Clumps (None) /hpf 06/24/24 06/24/24 Range/Units 15:15 16:10 WBC (4.50-10.00) 10*3/uL RBC (4.10-5.20) 10*6/uL Hgb (12.0-15.0) g/dL Hct (37.2-46.3) % MCV (80.0-97.0) fL MCH (27.0-32.0) pg MCHC (32.0-37.0) g/dL Plt Count (140-440) 10*3/uL MPV (9.5-12.2) fL Immature Gran % (Auto) % Neutrophils % % Lymphocytes % % Monocytes % % Eosinophils % % Basophils % % Immature Gran # (0.00-0.04) 10*3/uL Neutrophils # (1.80-7.70) 10*3/uL Lymphocytes # (0.90-5.00) 10*3/uL Monocytes # (0.20-1.00) 10*3/uL Eosinophils # (0.04-0.35) 10*3/uL Basophils # (0.00-0.10) 10*3/uL PT (10.0-12.5) sec INR (<1.2) APTT (22.0-30.0) sec Sodium (137-145) mmol/L Potassium (3.5-5.1) mmol/L Chloride (98-107) mmol/L Carbon Dioxide (22-30) mmol/L Anion Gap mmol/L BUN (7-17) mg/dL Creatinine (0.52-1.04) mg/dL Est GFR (CKD-EPI)AfAm (>60 ml/min/1.73 sqM) Est GFR (CKD-EPI)NonAf (>60 ml/min/1.73 sqM) Glucose (74-99) mg/dL Plasma Lactic Acid Kwame 1.5 (0.7-2.0) mmol/L Calcium (8.4-10.2) mg/dL Total Bilirubin (0.2-1.3) mg/dL AST (14-36) U/L ALT (4-34) U/L Alkaline Phosphatase (38-126) U/L Total Protein (6.3-8.2) g/dL Albumin (3.5-5.0) g/dL Urine Color Dark Red Urine Appearance Bloody H (Clear) Urine RBC >182 H (0-5) /hpf Urine WBC >182 H (0-5) /hpf Urine WBC Clumps Many H (None) /hpf Disposition Clinical Impression: Pyelonephritis, Sepsis Disposition: ADMITTED IP TO THIS [facility] Condition: Stable Decision to Admit Reason: Admit from EC Decision Date: 06/24/24 Decision Time: 17:06
[2024-06-24] MEDS: ACETAMINOPHEN TAB 500 MG TAB PO STA (15:17)
[2024-06-24] MEDS: ONDANSETRON 4 MG/2 ML VIAL IVP STA (15:18)
[2024-06-24] MEDS: LACTATED RINGERS 1,500 ML IV SCH (15:18)
[2024-06-24] MEDS: cefTRIAXone IN SWFI 1,000 MG/10 ML SYRINGE IVP STA (15:21)
[2024-06-24 15:32] LABS: Basophils # (A) 0.03 10*3/uL (0.00-0.10); Basophils % (A) 0.2 %; HCT 24.9 % (37.2-46.3); HGB 8.2 g/dL (12.0-15.0); Lymphocytes # (A) 0.27 10*3/uL (0.90-5.00); Lymphocytes % (A) 1.6 %; MCH 31.7 pg (27.0-32.0); MCHC 32.9 g/dL (32.0-37.0); MCV 96.1 fL (80.0-97.0); Mean Platelet Volume 10.6 fL (9.5-12.2); Monocytes # (A) 0.51 10*3/uL (0.20-1.00); Monocytes % (A) 3.1 %; Neutrophils # (A) 15.63 10*3/uL (1.80-7.70); Neutrophils % (A) 94.4 %; Platelet Count 152 10*3/uL (140-440); RBC 2.59 10*6/uL (4.10-5.20); RDW 14.8 % (11.5-14.5); WBC 16.56 10*3/uL (4.50-10.00)
[2024-06-24 15:50] LABS: Partial Thromboplastin Time 22.8 sec (22.0-30.0); Prothrombin Time 11.4 sec (10.0-12.5)
[2024-06-24 15:52] LABS: ALT 14 U/L (4-34); AST 23 U/L (14-36); African American GFR (CKD) 34 (>60 ml/min/1.73 sqM); Albumin 3.6 g/dL (3.5-5.0); Alkaline Phosphatase 77 U/L (38-126); Anion Gap 11 mmol/L; Blood Urea Nitrogen 29 mg/dL (7-17); Calcium 10.3 mg/dL (8.4-10.2); Carbon Dioxide 25 mmol/L (22-30); Chloride 101 mmol/L (98-107); Glucose 153 mg/dL (74-99); Non-African American GFR(CKD) 29 (>60 ml/min/1.73 sqM); Potassium 3.8 mmol/L (3.5-5.1); Sodium 137 mmol/L (137-145); Total Bilirubin 0.9 mg/dL (0.2-1.3); Total Protein 6.2 g/dL (6.3-8.2)
--- NOTE | 2024-06-24 16:14 | CT ---
EXAMINATION TYPE: CT abdomen pelvis wo con DATE OF EXAM: 06/24/2024 COMPARISON: None CLINICAL INDICATION: Female, 78 years old with history of R flank pain w/ radiation, hematuria; PHH, right flank pain TECHNIQUE: CT scan of the abdomen and pelvis is performed without oral or IV contrast. CT DLP: 456.[address] CTDI: mGy Automated exposure control for dose reduction was used. FINDINGS: Within the limitations of a non-contrast study, the following observations are made. The lungs are clear. Gallbladder is normal and there is no gallstone, wall thickening, pericholecystic fluid or distention . There is no biliary ductal dilatation. There is no organomegaly of the liver, pancreas, spleen or adrenal glands. There are no renal calcifications or hydronephrosis. There is marked stranding-like density in the ri ght perirenal space which could be secondary to acute inflammation or prior right hydronephrosis/obst ruction. The caliber of the abdominal aorta is normal and there is no retroperitoneal adenopathy or hemorrhage . The bowel loops are normal in caliber is no evidence of obstruction. No inflammatory changes are iden tified in the mesentery and there is no free intraperitoneal air or fluid. There is no pelvic mass, free fluid, abscess or adenopathy. The osseous structures and soft tissues are unremarkable. IMPRESSION: Marked strand-like density in the right pararenal space but no definite calcification in the right co llecting system or ureter and no evidence of hydronephrosis. The findings could be related to prior o bstruction/hydronephrosis of the right kidney or inflammatory process of the right kidney. [facility], , 06/24/2024 4:11 PM
[2024-06-24 16:31] LABS: RBC,Urine >182 /hpf (0-5); WBC,Urine >182 /hpf (0-5)
[2024-06-24 16:32] LABS: Appearance,Urine Bloody (Clear); Color,Urine Dark Red
[2024-06-24] MEDS ORDERED: MORPHINE SULFATE 4 MG/ML SYRINGE IV PRN (17:03)
[2024-06-24] MEDS ORDERED: NALOXONE 0.4 MG/ML 1 ML VIAL IV PRN (17:03)
[2024-06-24] MEDS: SODIUM CHLORIDE 0.9% 1,000 ML IV SCH (19:45)
[2024-06-25] MEDS: ACETAMINOPHEN TAB 325 MG TAB PO PRN (03:43)
[2024-06-25 06:27] LABS: Glucose,Whole Blood 135 mg/dL (70-110)
[2024-06-25] MEDS ORDERED: DEXTROSE 50% SYRINGE 50 ML IVP PRN ×2 (07:18)
[2024-06-25 07:44] LABS: Basophils # (A) 0.06 10*3/uL (0.00-0.10); Basophils % (A) 0.3 %; Eosinophils # (A) 0.01 10*3/uL (0.04-0.35); Eosinophils % (A) 0.1 %; HCT 21.7 % (37.2-46.3); Lymphocytes # (A) 0.55 10*3/uL (0.90-5.00); Lymphocytes % (A) 2.8 %; MCH 31.7 pg (27.0-32.0); MCHC 32.3 g/dL (32.0-37.0); MCV 98.2 fL (80.0-97.0); Mean Platelet Volume 10.7 fL (9.5-12.2); Monocytes % (A) 3.1 %; Neutrophils # (A) 17.83 10*3/uL (1.80-7.70); Platelet Count 125 10*3/uL (140-440); RBC 2.21 10*6/uL (4.10-5.20); RDW 15.4 % (11.5-14.5); WBC 19.38 10*3/uL (4.50-10.00)
[2024-06-25 07:58] LABS: ALT 12 U/L (4-34); AST 22 U/L (14-36); African American GFR (CKD) 24 (>60 ml/min/1.73 sqM); Albumin 2.6 g/dL (3.5-5.0); Alkaline Phosphatase 59 U/L (38-126); Anion Gap 6 mmol/L; Blood Urea Nitrogen 35 mg/dL (7-17); Calcium 9.2 mg/dL (8.4-10.2); Carbon Dioxide 24 mmol/L (22-30); Chloride 106 mmol/L (98-107); Glucose 113 mg/dL (74-99); Non-African American GFR(CKD) 21 (>60 ml/min/1.73 sqM); Potassium 4.4 mmol/L (3.5-5.1); Sodium 136 mmol/L (137-145); Total Bilirubin 0.8 mg/dL (0.2-1.3); Total Protein 4.9 g/dL (6.3-8.2)
[2024-06-25] MEDS: INSULIN LISPRO (HumaLOG) 100 UNIT/ML 10 mL VL SQ SCH (08:22)
[2024-06-25] MEDS: FERROUS SULFATE 325 MG TAB PO SCH (08:47)
[2024-06-25] MEDS: ATORVASTATIN 20 MG TAB PO SCH (08:48)
[2024-06-25] MEDS: cefTRIAXone 2 GM in DEXTROSE 5% IN WATER 50 ML IVPB SCH (08:48)
[2024-06-25] MEDS: ASPIRIN 81 MG PO SCH (08:48)
[2024-06-25] MEDS ORDERED: cefTRIAXone IN SWFI 1,000 MG/10 ML SYRINGE IVP SCH (09:00)
[2024-06-25] MEDS: LOSARTAN 50 MG TAB PO SCH (09:06)
[2024-06-25] MEDS: hydroCHLOROthiazide 12.5 MG CAP PO SCH (09:06)
[2024-06-25] MEDS: SODIUM CHLORIDE 0.9% 500 ML 500 ML IV ONE (10:40)
[2024-06-25 11:59] LABS: Glucose,Whole Blood 140 mg/dL (70-110)
[2024-06-25] MEDS: PIOGLITAZONE 30 MG TAB PO SCH (12:02)
--- NOTE | 2024-06-25 13:18 | P.HPIM ---
History of Present Illness H&P Date: 06/25/24 Chief Complaint: Acute pyelonephritis with SIRS HISTORY OF PRESENT ILLNESS: This is a 78-year-old female with a previous medical history significant for hypertension and hypertensive cardiovascular disease, mixed hyperlipidemia, diabetes mellitus type 2, chronic kidney disease stage IIIa, iron deficiency anemia, patient presented to the office yesterday because of right lower quadrant abdominal pain associated with intractable nausea and vomiting not able to keep anything down, she was apparently quite dehydrated, was not able to keep anything down, her heart rate was around 135, EKG showed sinus tachycardia, she was referred to go to the ER for IV fluid resuscitation, and a CT scan of the abdomen pelvis, this did show evidence of right stranding of the right the right kidney, without evidence of any acute stone, patient was started on IV antibiotic in the form of Rocephin 2 g piggyback every 24 hours, she was given IV fluid resuscitation in the form of normal saline at 100 cc an hour, she was given a bolus of normal saline of a liter in the ER, then she was given another 500 cc on the floor, her blood pressure continues to be soft at this time, blood cultures are positive for Proteus which would respond well to the ceftriaxone at this time, infectious disease consultation as well as urology consultation was obtained. REVIEW OF SYSTEMS: Constitutional: Positive for fever, positive for chills, no night sweats. No weight change. Positive for weakness, fatigue or lethargy. No daytime sleepiness. EENT: No headache. No blurred vision or double vision, no loss of vision. No loss of Hearing, no ringing in the ears, no dizziness. No nasal drainage or congestion. No epistaxis. No sore throat. Lungs: No shortness of breath, no cough, no sputum production. No wheezing. Reports dyspnea with activity. Cardiovascular: No chest pain, no lower extremity edema. No palpitations. No paroxysmal nocturnal dyspnea. No orthopnea. No lightheadedness or dizziness. No syncopal episodes. Abdominal: Reports abdominal pain. Positive for nausea, vomiting. No diarrhea. No constipation. No bloody or tarry stools reports loss of appetite. Genitourinary: No dysuria, increased frequency, urgency. No urinary retention. Musculoskeletal: No myalgias. No muscle weakness, no gait dysfunction, no frequent falls. No back pain. No neck pain. Integumentary: No wounds, no lesions. No rash or pruritus. No unusual bruising. No change in hair or nails. Neurologic: No aphasia. No facial droop. No change in mentation. No head injury. No headache. No paralysis. No paresthesia. Psychiatric: No depression. No anxiety. No mood swings. Endocrine: No abnormal blood sugars. No weight change. PAST MEDICAL HISTORY: Hypertension and hypertensive cardiovascular disease. Mixed hyperlipidemia. Diabetes mellitus type 2. Chronic kidney disease stage IIIa. Iron deficiency anemia. Osteoarthritis. PAST SURGICAL HISTORY: Right breast cyst removal. 1969 Tonsillectomy and adenoidectomy. Cholecystectomy 1976. Left cataract surgery 07/25/2022. SOCIAL HISTORY: Patient denies any history of smoking, no history of drinking, no drug use or abuse. FAMILY HISTORY: Father at age 76 from motor vehicle accident had a history of diabetes, mo ther at age of 62 from motor vehicle accident, patient had 4 brothers 1 from cancer and the other 2 are alive, patient has 2 sisters alive and well, patient has 1 son alive and well, PHYSICAL EXAMINATION: General: 78-year-old female laying down in bed in no apparent distress. HEENT: Head is atraumatic, normocephalic, pupils were equal round reactive to light and recommendation, extraocular muscle movement were intact, sclera nonicteric, conjunctivae were pale, mucous membranes of the mouth are somewhat dry. Neck: Supple, no JVP, normal carotid upstroke bilaterally, no lymphadenopathy. Chest: Decreased breath sounds at the bases, few rhonchi, no expiratory wheezes, no chest wall tenderness, no intercostal retractions. Heart: First heart sound is normal, second heart sounds normal there is systolic ejection murmur 2/6 located in the left sternal border. Abdomen: Soft, nontender, nondistended, positive bowel sounds. Extremities: There is no edema no calf tenderness DP +2 bilaterally. Neurologic examination: Patient is awake alert and oriented x3, cranial nerves II-12 appear grossly intact, muscle power were 5 out of 5 in upper extremities and 5 out of 5 in bilateral lower extremities, deep tendon reflexes normal bilaterally. ASSESSMENT AND PLAN: 1. Acute pyelonephritis with sepsis with Proteus. Continue IV antibiotic in the form of Rocephin 2 g. Every 24 hours, continue IV fluid resuscitation in the form of normal saline at 100 cc an hour, patient will be given another bolus of 500 cc IV piggyback x 1 hour for half an hour, monitor this patient symptoms very closely, await the final result of the urine culture, the final result of the blood culture, infectious ease consultation from Dr. Marmolejo, urology consultation will be obtained. CT scan of the abdomen and pelvis was reviewed did not show evidence of acute kidney stones, it did show some stranding around the right kidney suggestive of pyelonephritis. 2. Proteus bacteremia. Continue patient on Rocephin 2 g piggyback every 24 hours, monitor the patient blood cultures in the next 24 hours. 3. Hypertension and hypertensive cardiovascular disease. Continue to hold the patient blood pressure medicine at this point in time. Monitor the patient blood pressure very closely. 4. Mixed hyperlipidemia. Continue atorvastatin 20 mg once every day, monitor lipid panel, keep LDL 55-70. 5. Diabetes mellitus type 2. Continue patient on sliding scale insulin, continue patient also on Actos 30 mg orally once every day. 6. Iron deficiency anemia. Continue iron supplement 325 mg orally twice every day. 7. Chronic kidney disease stage IIIa. Continue IV fluid resuscitation, monitor the patient CMP over the next 24 hours, avoid nephrotoxins. 8. DVT prophylaxis. Continue patient on heparin 5000 units subcutaneous every 12 hours. 9. GI prophylaxis. Continue Protonix 40 mg orally once every day. 10. Admit to inpatient. Estimated length of stay 2 midnights. 11. Full code Past Medical History Past Medical History: Diabetes Mellitus, Eye Disorder, Hyperlipidemia, Hypertension, Thyroid Disorder Additional Past Medical History / Comment(s): low iron. CATARACT LT EYE History of Any Multi-Drug Resistant Organisms: None Reported Past Surgical History: Breast Surgery, Cholecystectomy, Tonsillectomy Additional Past Surgical History / Comment(s): CYSTS REMOVED FROM BILAT BREASTS. CATARACT RT EYE REMOVED WITH LENS IMPLANTS Past Anesthesia/Blood Transfusion Reactions: No Reported Reaction Past Psychological History: No Psychological Hx Reported Smoking Status: Never smoker Past Alcohol Use History: None Reported Past Drug Use History: None Reported - Past Family History Sister(s) Family Medical History: Cancer Brother(s) Family Medical History: Cancer Additional Family Medical History / Comment(s): 2 BROTHERS WITH CANCER Medications and Allergies Home Medications Medication Instructions Recorded Confirmed Type Ascorbic Acid [Vitamin C] 1,000 mg PO DAILY 01/10/22 06/24/24 History Aspirin EC [Ecotrin Low Dose] 162 mg PO DAILY 01/10/22 06/24/24 History Ferrous Sulfate [Feosol] 325 mg PO BID 01/10/22 06/24/24 History Olmesartan/Hydrochlorothiazide 1 tab PO DAILY 01/10/22 06/24/24 History [Olmesartan-Hctz 40-12.5 mg Tab] Pioglitazone [Actos] 30 mg PO W/LUNCH 01/10/22 06/24/24 History Atorvastatin [Lipitor] 20 mg PO DAILY 06/24/24 06/24/24 History Calcium Carbonate [Calcium] 600 mg PO BID 06/24/24 06/24/24 History Allergies Allergy/AdvReac Type Severity Reaction Status Date / Time sitagliptin [From ] AdvReac Diarrhea Verified 06/24/24 17:57 Physical Exam Vitals: Vital Signs Temp Pulse Pulse Resp BP BP Pulse Ox 06/25/24 12:01 99.0 F 94 16 104/61 97 06/25/24 08:44 98.9 F 104 H 16 102/59 97 06/25/24 03:44 98.4 F 108 H 17 128/66 97 06/25/24 00:00 95 06/24/24 23:00 98.3 F 95 16 106/64 95 06/24/24 21:51 99.5 F 91 16 90/51 95 06/24/24 19:46 99.5 F 102 H 18 96/58 96 06/24/24 17:21 101.5 F H 107 H 18 97/57 94 L 06/24/24 16:13 102.9 F H 118 H 18 92/56 98 06/24/24 13:04 103 F H 127 H 18 110/52 95 Intake and Output 06/24/24 06/25/24 06/25/24 22:59 06:59 14:59 Intake Total 237 240 Output Total 200 100 Balance 237 -200 140 Intake: Oral 237 240 Output: Urine 200 100 Other: Voiding Method Toilet Toilet # Voids 1 Weight 63.503 kg 65.1 kg Results CBC & Chem 7: 06/25/24 07:16 06/25/24 07:16 Labs: Abnormal Lab Results - Last 24 Hours (Table) 06/24/24 06/24/24 06/24/24 Range/Units 15:15 15:15 16:10 WBC 16.56 H (4.50-10.00) 10*3/uL RBC 2.59 L (4.10-5.20) 10*6/uL Hgb 8.2 L (12.0-15.0) g/dL Hct 24.9 L (37.2-46.3) % MCV (80.0-97.0) fL Plt Count (140-440) 10*3/uL Immature Gran # 0.12 H (0.00-0.04) 10*3/uL Neutrophils # 15.63 H (1.80-7.70) 10*3/uL Lymphocytes # 0.27 L (0.90-5.00) 10*3/uL Eosinophils # 0.00 L (0.04-0.35) 10*3/uL Sodium (137-145) mmol/L BUN 29 H (7-17) mg/dL Creatinine 1.66 H (0.52-1.04) mg/dL Glucose 153 H (74-99) mg/dL POC Glucose (mg/dL) (70-110) mg/dL Calcium 10.3 H (8.4-10.2) mg/dL Total Protein 6.2 L (6.3-8.2) g/dL Albumin (3.5-5.0) g/dL Urine Appearance Bloody H (Clear) Urine RBC >182 H (0-5) /hpf Urine WBC >182 H (0-5) /hpf Urine WBC Clumps Many H (None) /hpf 06/25/24 06/25/24 06/25/24 Range/Units 06:26 07:16 07:16 WBC 19.38 H (4.50-10.00) 10*3/uL RBC 2.21 L (4.10-5.20) 10*6/uL Hgb 7.0 L (12.0-15.0) g/dL Hct 21.7 L (37.2-46.3) % MCV 98.2 H (80.0-97.0) fL Plt Count 125 L (140-440) 10*3/uL Immature Gran # 0.33 H (0.00-0.04) 10*3/uL Neutrophils # 17.83 H (1.80-7.70) 10*3/uL Lymphocytes # 0.55 L (0.90-5.00) 10*3/uL Eosinophils # 0.01 L (0.04-0.35) 10*3/uL Sodium 136 L (137-145) mmol/L BUN 35 H (7-17) mg/dL Creatinine 2.17 H (0.52-1.04) mg/dL Glucose 113 H (74-99) mg/dL POC Glucose (mg/dL) 135 H (70-110) mg/dL Calcium (8.4-10.2) mg/dL Total Protein 4.9 L (6.3-8.2) g/dL Albumin 2.6 L (3.5-5.0) g/dL Urine Appearance (Clear) Urine RBC (0-5) /hpf Urine WBC (0-5) /hpf Urine WBC Clumps (None) /hpf 06/25/24 Range/Units 11:56 WBC (4.50-10.00) 10*3/uL RBC (4.10-5.20) 10*6/uL Hgb (12.0-15.0) g/dL Hct (37.2-46.3) % MCV (80.0-97.0) fL Plt Count (140-440) 10*3/uL Immature Gran # (0.00-0.04) 10*3/uL Neutrophils # (1.80-7.70) 10*3/uL Lymphocytes # (0.90-5.00) 10*3/uL Eosinophils # (0.04-0.35) 10*3/uL Sodium (137-145) mmol/L BUN (7-17) mg/dL Creatinine (0.52-1.04) mg/dL Glucose (74-99) mg/dL POC Glucose (mg/dL) 140 H (70-110) mg/dL Calcium (8.4-10.2) mg/dL Total Protein (6.3-8.2) g/dL Albumin (3.5-5.0) g/dL Urine Appearance (Clear) Urine RBC (0-5) /hpf Urine WBC (0-5) /hpf Urine WBC Clumps (None) /hpf Microbiology - Last 24 Hours (Table) 06/24/24 15:15 Blood Culture Gram Stain - Preliminary Blood Blood Culture - Preliminary Molecular ID 06/24/24 15:15 Blood Culture Gram Stain - Preliminary Blood Thrombosis Risk Factor Assmnt - Choose All That Apply Any of the Below Risk Factors Present?: Yes Each Factor Represents 1 point: Sepsis (< 1month) Other Risk Factors: Yes Each Risk Factor Represents 3 Points: Age 75 years or older Other congenital or acquired thrombophilia - If yes, enter type in comment: No Thrombosis Risk Factor Assessment Total Risk Factor Score: 4 Thrombosis Risk Factor Assessment Level: Moderate Risk
[2024-06-25 16:28] LABS: Glucose,Whole Blood 114 mg/dL (70-110)
[2024-06-25] MEDS: SODIUM CHLORIDE 0.9% 1,000 ML IV ONE (18:28)
[2024-06-25 20:01] LABS: Glucose,Whole Blood 126 mg/dL (70-110)
[2024-06-25] MEDS: HEPARIN SODIUM,PORCINE 5,000 UNIT/ML 1 ML VIAL SQ SCH (20:10)
--- NOTE | 2024-06-25 21:27 | P.GSCN ---
History of Present Illness Consult date: 06/25/24 Reason for Consult: Pyelonephritis History of present illness: This is a 78-year-old female admitted to the hospital for pyelonephritis. Laura theodore has been having intractable right-sided flank pain associated with high-grade fevers. She is also been complaining of nausea without vomiting. She did notice gross hematuria but denied any dysuria or any changes in her urinary symptoms. No previous history of recurrent UTIs. No previous history of kidney stones. She underwent a CT abdomen and pelvis that showed evidence of significant stranding around the kidney, there was no evidence of hydronephrosis, or any obstructive stone that were seen. Review of Systems - Constitutional Reports chills, Reports fever, Denies weakness - Cardiovascular Reports as per HPI - Respiratory Denies cough, Denies 7 - Gastrointestinal Reports abdominal pain, Denies nausea, Denies vomiting - Genitourinary Genitourinary: Reports flank pain, Reports hematuria, Denies dysuria Past Medical History Past Medical History: Diabetes Mellitus, Eye Disorder, Hyperlipidemia, Hypertension, Thyroid Disorder Additional Past Medical History / Comment(s): low iron. CATARACT LT EYE History of Any Multi-Drug Resistant Organisms: None Reported Past Surgical History: Breast Surgery, Cholecystectomy, Tonsillectomy Additional Past Surgical History / Comment(s): CYSTS REMOVED FROM BILAT BREASTS. CATARACT RT EYE REMOVED WITH LENS IMPLANTS Past Anesthesia/Blood Transfusion Reactions: No Reported Reaction Past Psychological History: No Psychological Hx Reported Smoking Status: Never smoker Past Alcohol Use History: None Reported Past Drug Use History: None Reported - Past Family History Sister(s) Family Medical History: Cancer Brother(s) Family Medical History: Cancer Additional Family Medical History / Comment(s): 2 BROTHERS WITH CANCER Medications and Allergies Home Medications Medication Instructions Recorded Confirmed Type Ascorbic Acid [Vitamin C] 1,000 mg PO DAILY 01/10/22 06/24/24 History Aspirin EC [Ecotrin Low Dose] 162 mg PO DAILY 01/10/22 06/24/24 History Ferrous Sulfate [Feosol] 325 mg PO BID 01/10/22 06/24/24 History Olmesartan/Hydrochlorothiazide 1 tab PO DAILY 01/10/22 06/24/24 History [Olmesartan-Hctz 40-12.5 mg Tab] Pioglitazone [Actos] 30 mg PO W/LUNCH 01/10/22 06/24/24 History Atorvastatin [Lipitor] 20 mg PO DAILY 06/24/24 06/24/24 History Calcium Carbonate [Calcium] 600 mg PO BID 06/24/24 06/24/24 History Allergies Allergy/AdvReac Type Severity Reaction Status Date / Time sitagliptin [From ] AdvReac Diarrhea Verified 06/24/24 17:57 Surgical - Exam Vital Signs Temp Pulse Resp BP Pulse Ox 103 F H 127 H 18 110/52 95 06/24/24 13:04 06/24/24 13:04 06/24/24 13:04 06/24/24 13:04 06/24/24 13:04 - General no distress, no pain - Eyes normal ocular movement, no pale - ENT normal nares, normal mucosa - Respiratory normal expansion, normal respiratory effort - Abdomen Abdomen: soft, non tender - Psychiatric oriented to time, oriented to person, oriented to place Results - Labs 06/25/24 07:16 06/25/24 07:16 Abnormal Lab Results - Last 24 Hours (Table) 06/25/24 06/25/24 06/25/24 Range/Units 06:26 07:16 07:16 WBC 19.38 H (4.50-10.00) 10*3/uL RBC 2.21 L (4.10-5.20) 10*6/uL Hgb 7.0 L (12.0-15.0) g/dL Hct 21.7 L (37.2-46.3) % MCV 98.2 H (80.0-97.0) fL Plt Count 125 L (140-440) 10*3/uL Immature Gran # 0.33 H (0.00-0.04) 10*3/uL Neutrophils # 17.83 H (1.80-7.70) 10*3/uL Lymphocytes # 0.55 L (0.90-5.00) 10*3/uL Eosinophils # 0.01 L (0.04-0.35) 10*3/uL Sodium 136 L (137-145) mmol/L BUN 35 H (7-17) mg/dL Creatinine 2.17 H (0.52-1.04) mg/dL Glucose 113 H (74-99) mg/dL POC Glucose (mg/dL) 135 H (70-110) mg/dL Total Protein 4.9 L (6.3-8.2) g/dL Albumin 2.6 L (3.5-5.0) g/dL 06/25/24 06/25/24 06/25/24 Range/Units 11:56 16:24 19:59 WBC (4.50-10.00) 10*3/uL RBC (4.10-5.20) 10*6/uL Hgb (12.0-15.0) g/dL Hct (37.2-46.3) % MCV (80.0-97.0) fL Plt Count (140-440) 10*3/uL Immature Gran # (0.00-0.04) 10*3/uL Neutrophils # (1.80-7.70) 10*3/uL Lymphocytes # (0.90-5.00) 10*3/uL Eosinophils # (0.04-0.35) 10*3/uL Sodium (137-145) mmol/L BUN (7-17) mg/dL Creatinine (0.52-1.04) mg/dL Glucose (74-99) mg/dL POC Glucose (mg/dL) 140 H 114 H 126 H (70-110) mg/dL Total Protein (6.3-8.2) g/dL Albumin (3.5-5.0) g/dL Microbiology - Last 24 Hours (Table) 06/24/24 15:15 Blood Culture Gram Stain - Preliminary Blood Blood Culture - Preliminary Molecular ID 06/24/24 15:15 Blood Culture Gram Stain - Preliminary Blood Diabetes panel 06/25/24 Range/Units 07:16 Sodium 136 L (137-145) mmol/L Potassium 4.4 (3.5-5.1) mmol/L Chloride 106 (98-107) mmol/L Carbon Dioxide 24 (22-30) mmol/L BUN 35 H (7-17) mg/dL Creatinine 2.17 H (0.52-1.04) mg/dL Glucose 113 H (74-99) mg/dL Calcium 9.2 (8.4-10.2) mg/dL AST 22 (14-36) U/L ALT 12 (4-34) U/L Alkaline Phosphatase 59 (38-126) U/L Total Protein 4.9 L (6.3-8.2) g/dL Albumin 2.6 L (3.5-5.0) g/dL Calcium panel 06/25/24 Range/Units 07:16 Calcium 9.2 (8.4-10.2) mg/dL Albumin 2.6 L (3.5-5.0) g/dL Pituitary panel 06/25/24 Range/Units 07:16 Sodium 136 L (137-145) mmol/L Potassium 4.4 (3.5-5.1) mmol/L Chloride 106 (98-107) mmol/L Carbon Dioxide 24 (22-30) mmol/L BUN 35 H (7-17) mg/dL Creatinine 2.17 H (0.52-1.04) mg/dL Glucose 113 H (74-99) mg/dL Calcium 9.2 (8.4-10.2) mg/dL Adrenal panel 06/25/24 Range/Units 07:16 Sodium 136 L (137-145) mmol/L Potassium 4.4 (3.5-5.1) mmol/L Chloride 106 (98-107) mmol/L Carbon Dioxide 24 (22-30) mmol/L BUN 35 H (7-17) mg/dL Creatinine 2.17 H (0.52-1.04) mg/dL Glucose 113 H (74-99) mg/dL Calcium 9.2 (8.4-10.2) mg/dL Total Bilirubin 0.8 (0.2-1.3) mg/dL AST 22 (14-36) U/L ALT 12 (4-34) U/L Alkaline Phosphatase 59 (38-126) U/L Total Protein 4.9 L (6.3-8.2) g/dL Albumin 2.6 L (3.5-5.0) g/dL Assessment and Plan Assessment: 78-year-old female admitted to the hospital with pyelonephritis. Patient was septic on presentation, she is improving, this morning she denied any flank pain. She is afebrile. I reviewed her CT scan I do not see any evidence of hydronephrosis or any obstructive stones, the significant edema around the kidney and stranding is secondary to her pyelonephritis. At this time recommend a minimum of 2 weeks course of antibiotics, infectious disease is on board for antibiotic management. Gross hematuria is most likely secondary to her pyelonephritis. From urology standpoint she can follow-up as an outpatient for repeat urinalysis, at that point if she is having persistent hematuria then she will require a cystoscopy also.
[2024-06-26 05:56] LABS: Glucose,Whole Blood 98 mg/dL (70-110)
[2024-06-26] MEDS: PANTOPRAZOLE 40 MG TABLET PO SCH (05:59)
--- NOTE | 2024-06-26 07:58 | P.CONS ---
History of Present Illness - Reason for Consult Consult date: 06/25/24 Pyelonephritis Requesting physician: Susana Berger - Chief Complaint Hematuria right-sided flank pain x days - History of Present Illness Patient is a 78-year-old female with a past medical history significant for diabetes mellitus hypertension hyperlipidemia hypothyroidism presenting to the hospital for evaluation of nausea vomiting and also having hematuria patient symptoms started the day before presentation to the hospital he did start initially with nausea vomiting and subsequently did have hematuria and also urinary frequency and urgency as well as suprapubic discomfort patient did have chills in her presentation to the hospital patient was febrile with a temperature of 103 F patient was tachycardic but not hypotensive or hypoxic no need for supplemental oxygen did have a white count of 19.38 BUN and creatinine has been elevated electrolytes are normal liver enzymes are normal urine has been positive blood cultures came back positive with gram-negative bacilli prompted this consultation patient also have a abdominal pelvis CT marked strand -like density in the right pararenal space findings could be related to prior obstruction/hydronephrosis of the right kidney infectious disease was consulted for further management of antibiotic therapy related to pyelonephritis disc Review of Systems Positive point and negatives has been mentioned in the HPI, complete review of systems was performed and all other systems are negative Past Medical History Past Medical History: Diabetes Mellitus, Eye Disorder, Hyperlipidemia, Hypertension, Thyroid Disorder Additional Past Medical History / Comment(s): low iron. CATARACT LT EYE History of Any Multi-Drug Resistant Organisms: None Reported Past Surgical History: Breast Surgery, Cholecystectomy, Tonsillectomy Additional Past Surgical History / Comment(s): CYSTS REMOVED FROM BILAT BREASTS. CATARACT RT EYE REMOVED WITH LENS IMPLANTS Past Anesthesia/Blood Transfusion Reactions: No Reported Reaction Past Psychological History: No Psychological Hx Reported Smoking Status: Never smoker Past Alcohol Use History: None Reported Past Drug Use History: None Reported - Past Family History Sister(s) Family Medical History: Cancer Brother(s) Family Medical History: Cancer Additional Family Medical History / Comment(s): 2 BROTHERS WITH CANCER Medications and Allergies Home Medications Medication Instructions Recorded Confirmed Type Ascorbic Acid [Vitamin C] 1,000 mg PO DAILY 01/10/22 06/24/24 History Aspirin EC [Ecotrin Low Dose] 162 mg PO DAILY 01/10/22 06/24/24 History Ferrous Sulfate [Feosol] 325 mg PO BID 01/10/22 06/24/24 History Olmesartan/Hydrochlorothiazide 1 tab PO DAILY 01/10/22 06/24/24 History [Olmesartan-Hctz 40-12.5 mg Tab] Pioglitazone [Actos] 30 mg PO W/LUNCH 01/10/22 06/24/24 History Atorvastatin [Lipitor] 20 mg PO DAILY 06/24/24 06/24/24 History Calcium Carbonate [Calcium] 600 mg PO BID 06/24/24 06/24/24 History Allergies Allergy/AdvReac Type Severity Reaction Status Date / Time sitagliptin [From ] AdvReac Diarrhea Verified 06/24/24 17:57 Physical Exam Vitals: Vital Signs Temp Pulse Pulse Resp BP BP Pulse Ox 06/25/24 12:01 99.0 F 94 16 104/61 97 06/25/24 08:44 98.9 F 104 H 16 102/59 97 06/25/24 03:44 98.4 F 108 H 17 128/66 97 06/25/24 00:00 95 06/24/24 23:00 98.3 F 95 16 106/64 95 06/24/24 21:51 99.5 F 91 16 90/51 95 06/24/24 19:46 99.5 F 102 H 18 96/58 96 06/24/24 17:21 101.5 F H 107 H 18 97/57 94 L 06/24/24 16:13 102.9 F H 118 H 18 92/56 98 06/24/24 13:04 103 F H 127 H 18 110/52 95 Intake and Output 06/24/24 06/25/24 06/25/24 22:59 06:59 14:59 Intake Total 237 240 Output Total 200 100 Balance 237 -200 140 Intake: Oral 237 240 Output: Urine 200 100 Other: Voiding Method Toilet Toilet # Voids 1 Weight 63.503 kg 65.1 kg GENERAL DESCRIPTION: Elderly female up in the chair, no distress. No tachypnea or accessory muscle of respiration use. HEENT: Shows Pallor , no scleral icterus. Oral mucous membrane is dry. No pharyngeal erythema or thrush NECK: Trachea central, no thyromegaly. LUNGS: Unlabored breathing. Clear to auscultation anteriorly. No wheeze or crackle. HEART: S1, S2, regular rate and rhythm. No loud murmur ABDOMEN: Soft, no tenderness , guarding or rigidity, no organomegaly EXTREMITIES: No edema of feet. SKIN: No rash, no masses palpable. NEUROLOGICAL: The patient is awake, alert, oriented x3, mood and affect normal. Results CBC & Chem 7: 06/25/24 07:16 06/25/24 07:16 Labs: Abnormal Lab Results - Last 24 Hours (Table) 06/24/24 06/24/24 06/24/24 Range/Units 15:15 15:15 16:10 WBC 16.56 H (4.50-10.00) 10*3/uL RBC 2.59 L (4.10-5.20) 10*6/uL Hgb 8.2 L (12.0-15.0) g/dL Hct 24.9 L (37.2-46.3) % MCV (80.0-97.0) fL Plt Count (140-440) 10*3/uL Immature Gran # 0.12 H (0.00-0.04) 10*3/uL Neutrophils # 15.63 H (1.80-7.70) 10*3/uL Lymphocytes # 0.27 L (0.90-5.00) 10*3/uL Eosinophils # 0.00 L (0.04-0.35) 10*3/uL Sodium (137-145) mmol/L BUN 29 H (7-17) mg/dL Creatinine 1.66 H (0.52-1.04) mg/dL Glucose 153 H (74-99) mg/dL POC Glucose (mg/dL) (70-110) mg/dL Calcium 10.3 H (8.4-10.2) mg/dL Total Protein 6.2 L (6.3-8.2) g/dL Albumin (3.5-5.0) g/dL Urine Appearance Bloody H (Clear) Urine RBC >182 H (0-5) /hpf Urine WBC >182 H (0-5) /hpf Urine WBC Clumps Many H (None) /hpf 06/25/24 06/25/24 06/25/24 Range/Units 06:26 07:16 07:16 WBC 19.38 H (4.50-10.00) 10*3/uL RBC 2.21 L (4.10-5.20) 10*6/uL Hgb 7.0 L (12.0-15.0) g/dL Hct 21.7 L (37.2-46.3) % MCV 98.2 H (80.0-97.0) fL Plt Count 125 L (140-440) 10*3/uL Immature Gran # 0.33 H (0.00-0.04) 10*3/uL Neutrophils # 17.83 H (1.80-7.70) 10*3/uL Lymphocytes # 0.55 L (0.90-5.00) 10*3/uL Eosinophils # 0.01 L (0.04-0.35) 10*3/uL Sodium 136 L (137-145) mmol/L BUN 35 H (7-17) mg/dL Creatinine 2.17 H (0.52-1.04) mg/dL Glucose 113 H (74-99) mg/dL POC Glucose (mg/dL) 135 H (70-110) mg/dL Calcium (8.4-10.2) mg/dL Total Protein 4.9 L (6.3-8.2) g/dL Albumin 2.6 L (3.5-5.0) g/dL Urine Appearance (Clear) Urine RBC (0-5) /hpf Urine WBC (0-5) /hpf Urine WBC Clumps (None) /hpf /10/12 Range/Units 11:56 WBC (4.50-10.00) 10*3/uL RBC (4.10-5.20) 10*6/uL Hgb (12.0-15.0) g/dL Hct (37.2-46.3) % MCV (80.0-97.0) fL Plt Count (140-440) 10*3/uL Immature Gran # (0.00-0.04) 10*3/uL Neutrophils # (1.80-7.70) 10*3/uL Lymphocytes # (0.90-5.00) 10*3/uL Eosinophils # (0.04-0.35) 10*3/uL Sodium (137-145) mmol/L BUN (7-17) mg/dL Creatinine (0.52-1.04) mg/dL Glucose (74-99) mg/dL POC Glucose (mg/dL) 140 H (70-110) mg/dL Calcium (8.4-10.2) mg/dL Total Protein (6.3-8.2) g/dL Albumin (3.5-5.0) g/dL Urine Appearance (Clear) Urine RBC (0-5) /hpf Urine WBC (0-5) /hpf Urine WBC Clumps (None) /hpf Microbiology - Last 24 Hours (Table) 06/24/24 15:15 Blood Culture Gram Stain - Preliminary Blood Blood Culture - Preliminary Molecular ID 06/24/24 15:15 Blood Culture Gram Stain - Preliminary Blood Assessment and Plan (1) Pyelonephritis Current Visit: Yes Status: Acute Code(s): N12 - TUBULO-INTERSTITIAL NEPHRITIS, NOT SPCF ACUTE OR CHRONIC SNOMED Code(s): 41376209 (2) Sepsis Current Visit: Yes Status: Acute Code(s): A41.9 - SEPSIS, UNSPECIFIED ORGANISM SNOMED Code(s): 23554019 Plan: 1patient presented to hospital with sepsis in this patient who did have a fever tachycardia elevated white count meeting currently for SIRS/sepsis source is right-sided pyelonephritis with significant abnormality to the right kidney seen on the CAT scan did not mention any stones likely related to enteric gram-nega tive pathogen. 2patient with gram-negative bacteremia source likely right-sided pyelonephritis. 3patient will be treated with Rocephin 2 g daily empirically while waiting for the culture to finalize. We will follow on clinical condition and cultures to further adjust medication if needed Thank you for this consultation we will follow the patient along with you Dictation was produced using [employer] dictation software. please excuse any grammatical, word or spelling errors. Time with Patient: Greater than 30
[2024-06-26 08:04] LABS: Basophils # (A) 0.05 10*3/uL (0.00-0.10); Basophils % (A) 0.3 %; Eosinophils # (A) 0.11 10*3/uL (0.04-0.35); Eosinophils % (A) 0.7 %; HCT 25.1 % (37.2-46.3); HGB 7.8 g/dL (12.0-15.0); Immature Platelet Fraction 2.5 % (1.1-6.1); Lymphocytes # (A) 0.54 10*3/uL (0.90-5.00); Lymphocytes % (A) 3.4 %; MCH 31.7 pg (27.0-32.0); MCHC 31.1 g/dL (32.0-37.0); Mean Platelet Volume 11.4 fL (9.5-12.2); Monocytes # (A) 0.48 10*3/uL (0.20-1.00); Neutrophils # (A) 14.46 10*3/uL (1.80-7.70); Neutrophils % (A) 91.5 %; Platelet Count 134 10*3/uL (140-440); RBC 2.46 10*6/uL (4.10-5.20); RDW 15.3 % (11.5-14.5); WBC 15.82 10*3/uL (4.50-10.00)
[2024-06-26 08:26] LABS: ALT 19 U/L (4-34); AST 35 U/L (14-36); African American GFR (CKD) 33 (>60 ml/min/1.73 sqM); Albumin 2.8 g/dL (3.5-5.0); Alkaline Phosphatase 84 U/L (38-126); Anion Gap 8 mmol/L; Blood Urea Nitrogen 31 mg/dL (7-17); Calcium 8.6 mg/dL (8.4-10.2); Carbon Dioxide 20 mmol/L (22-30); Chloride 109 mmol/L (98-107); Glucose 85 mg/dL (74-99); Magnesium 1.7 mg/dL (1.6-2.3); Non-African American GFR(CKD) 29 (>60 ml/min/1.73 sqM); Potassium 3.9 mmol/L (3.5-5.1); Sodium 137 mmol/L (137-145); Total Bilirubin 0.7 mg/dL (0.2-1.3); Total Protein 5.3 g/dL (6.3-8.2)
[2024-06-26] MEDS: LOSARTAN 50 MG TAB PO SCH (08:55)
[2024-06-26] MEDS: ONDANSETRON 4 MG/2 ML VIAL IVP PRN (09:09)
[2024-06-26 11:34] LABS: Glucose,Whole Blood 105 mg/dL (70-110)
--- NOTE | 2024-06-26 14:31 | P.PN ---
Subjective Progress Note Date: 06/26/24 HISTORY OF PRESENT ILLNESS: This is a 78-year-old female with a previous medical history signif icant for hypertension and hypertensive cardiovascular disease, mixed hyperlipidemia, diabetes mellitus type 2, chronic kidney disease stage IIIa, iron deficiency anemia, patient presented to the office yesterday because of right lower quadrant abdominal pain associated with intractable nausea and v omiting not able to keep anything down, she was apparently quite dehydrated, was not able to keep anything down, her heart rate was around 135, EKG showed sinus tachycardia, she was referred to go to the ER for IV fluid resuscitation, and a CT scan of the abdomen pelvis, this did show evidence of right stranding of the right the right kidney, without evidence of any acute stone, patient was started on IV antibiotic in the form of Rocephin 2 g piggyback every 24 hours, she was given IV fluid resuscitation in the form of normal saline at 100 cc an hour, she was given a bolus of normal saline of a liter in the ER, then she was given another 500 cc on the floor, her blood pressure continues to be soft at this time, blood cultures are positive for Proteus which would respond well to the ceftriaxone at this time, infectious disease consultation as well as urology consultation was obtained. 06/26: Patient sitting up in her bed complaining of increased nausea had episode of vomiting not able to eat much today, she is not able to drink much either, her daughter was at the bedside, she was updated about her current condition, she appeared to have some significant swelling in both eyelids and face, we will decrease her IV fluid to 50 cc an hour, monitor the patient symptoms very closely, continue ceftriaxone 2 g piggyback every 24 hours, monitor the patient very closely she was seen earlier by infectious ease as well as by urology, it was recommended to continue current treatment plan, we will start the patient on Glucerna 3 times every day, follow-up with the patient very closely. REVIEW OF SYSTEMS: Constitutional: Positive for fever, positive for chills, no night sweats. No weight change. Positive for weakness, fatigue or lethargy. No daytime sleepiness. EENT: No headache. Positive for blurred vision or double vision, no loss of vision. No loss of Hearing, no ringing in the ears, no dizziness. No nasal drainage or congestion. No epistaxis. No sore throat. Lungs: No shortness of breath, no cough, no sputum production. No wheezing. Reports dyspnea with activity. Cardiovascular: No chest pain, no lower extremity edema. No palpitations. No paroxysmal nocturnal dyspnea. No orthopnea. No lightheadedness or dizziness. No syncopal episodes. Abdominal: Reports abdominal pain. Positive for nausea, vomiting. No diarrhea. No constipation. No bloody or tarry stools reports loss of appetite. Genitourinary: No dysuria, increased frequency, urgency. No urinary retention. Musculoskeletal: No myalgias. No muscle weakness, no gait dysfunction, no frequent falls. No back pain. No neck pain. Integumentary: No wounds, no lesions. No rash or pruritus. No unusual bruising. No change in hair or nails. Neurologic: No aphasia. No facial droop. No change in mentation. No head injury. No headache. No paralysis. No paresthesia. Psychiatric: No depression. No anxiety. No mood swings. Endocrine: No abnormal blood sugars. No weight change. PHYSICAL EXAMINATION: General: 78-year-old female laying down in bed in minimal distress, with minimal edema in both eyelids. HEENT: Head is atraumatic, normocephalic, pupils were equal round reactive to light and recommendation, extraocular muscle movement were intact, sclera nonicteric positive for edema in both eyelids,, conjunctivae were pale, mucous membranes of the mouth are somewhat dry. Neck: Supple, no JVP, normal carotid upstroke bilaterally, no lymphadenopathy. Chest: Decreased breath sounds at the bases, few rhonchi, no expiratory wheezes, no chest wall tenderness, no intercostal retractions. Heart: First heart sound is normal, second heart sounds normal there is systolic ejection murmur 2/6 located in the left sternal border. Abdomen: Soft, nontender, nondistended, positive bowel sounds. Extremities: There is no edema no calf tenderness DP +2 bilaterally. Neurologic examination: Patient is awake alert and oriented x3, cranial nerves II-12 appear grossly intact, muscle power were 5 out of 5 in upper extremities and 5 out of 5 in bilateral lower extremities, deep tendon reflexes normal bilaterally. ASSESSMENT AND PLAN: 1. Acute pyelonephritis with sepsis with gram-negative bacilli continue IV antibiotic in the form of Rocephin 2 g IV piggyback Every 24 hours, decrease IV fluid to 50 cc an hour, monitor the patient input and output and daily weight, follow-up with the patient very closely, infectious's consultation appreciated, repeated blood cultures still pending, urine culture still pending. 2. Gram-negative bacteremia continue patient on Rocephin 2 g piggyback every 24 hours, monitor the patient blood cultures in the next 24 hours. 3. Hypertension and hypertensive cardiovascular disease. Restart the patient back on her hydrochlorothiazide 12.5 mg once every day as well as losartan 100 mg once every day, monitor the patient symptoms very closely. 4. Mixed hyperlipidemia. Continue atorvastatin 20 mg once every day, monitor lipid panel, keep LDL 55-70. 5. Diabetes mellitus type 2. Continue patient on sliding scale insulin, continue patient also on Actos 30 mg orally once every day. 6. Iron deficiency anemia. Continue iron supplement 325 mg orally twice every day. 7. Acute kidney injury on chronic kidney disease stage IIIb due to vasomotor nephropathy and acute tubular necrosis due to intractable nausea and vomiting. Appears to be back to baseline, decrease IV fluid to 50 cc an hour. 8. DVT prophylaxis. Continue patient on heparin 5000 units subcutaneous every 12 hours. 9. GI prophylaxis. Continue Protonix 40 mg orally once every day. 10. Intractable nausea and vomiting likely due to sepsis, rule out sinus drainage, patient will need to have an upper endoscopy as well as colonoscopy as an outpatient discussed with her daughter I spoke with the patient about the as an outpatient and she declined in the past, due to her age, but this possibly need to be done at this point in time as the patient continues to be anemic we will transfuse for hemoglobin less then 7 11. Patient is a full code. Objective - Vital Signs Vital signs: Vital Signs Temp 99.3 F 06/26/24 12:00 Pulse 86 06/26/24 12:00 Resp 16 06/26/24 12:00 BP 147/73 06/26/24 12:00 Pulse Ox 99 06/26/24 12:00 FiO2 Intake & Output 06/25/24 06/26/24 06/26/24 18:59 06:59 18:59 Intake Total 2320 237 118 Output Total 200 500 Balance 2120 -263 118 Weight 67.8 kg Intake: Intake, IV Titration 1600 Amount Sodium Chloride 0.9% 1, 1100 000 ml @ 100 mls/hr IV . Q10H [facility] Rx#:[id number] Sodium Chloride 0.9% 500 500 ml 500 ml @ 999 mls/hr IV .Q31M ONE Rx#:[id number] Oral 720 237 118 Output: Urine 200 500 Other: Voiding Method Toilet Toilet Toilet # Voids 1 - Labs CBC & Chem 7: 06/26/24 07:06 06/26/24 07:06 Labs: Abnormal Lab Results - Last 24 Hours (Table) 06/25/24 06/25/24 06/26/24 Range/Units 16:24 19:59 07:06 WBC (4.50-10.00) 10*3/uL RBC (4.10-5.20) 10*6/uL Hgb (12.0-15.0) g/dL Hct (37.2-46.3) % MCV (80.0-97.0) fL MCHC (32.0-37.0) g/dL Plt Count (140-440) 10*3/uL Immature Gran # (0.00-0.04) 10*3/uL Neutrophils # (1.80-7.70) 10*3/uL Lymphocytes # (0.90-5.00) 10*3/uL Chloride (98-107) mmol/L Carbon Dioxide (22-30) mmol/L BUN (7-17) mg/dL Creatinine (0.52-1.04) mg/dL POC Glucose (mg/dL) 114 H 126 H (70-110) mg/dL Hemoglobin A1c 6.2 H (<=6.0) % Total Protein (6.3-8.2) g/dL Albumin (3.5-5.0) g/dL 06/26/24 06/26/24 Range/Units 07:06 07:06 WBC 15.82 H (4.50-10.00) 10*3/uL RBC 2.46 L (4.10-5.20) 10*6/uL Hgb 7.8 L (12.0-15.0) g/dL Hct 25.1 L (37.2-46.3) % MCV 102.0 H (80.0-97.0) fL MCHC 31.1 L (32.0-37.0) g/dL Plt Count 134 L (140-440) 10*3/uL Immature Gran # 0.18 H (0.00-0.04) 10*3/uL Neutrophils # 14.46 H (1.80-7.70) 10*3/uL Lymphocytes # 0.54 L (0.90-5.00) 10*3/uL Chloride 109 H (98-107) mmol/L Carbon Dioxide 20 L (22-30) mmol/L BUN 31 H (7-17) mg/dL Creatinine 1.70 H (0.52-1.04) mg/dL POC Glucose (mg/dL) (70-110) mg/dL Hemoglobin A1c (<=6.0) % Total Protein 5.3 L (6.3-8.2) g/dL Albumin 2.8 L (3.5-5.0) g/dL Microbiology - Last 24 Hours (Table) 06/24/24 15:15 Blood Culture Gram Stain - Preliminary Blood Blood Culture - Preliminary Gram Neg Bacilli 06/24/24 15:15 Blood Culture Gram Stain - Preliminary Blood Blood Culture - Preliminary Gram Neg Bacilli Molecular ID 06/24/24 16:10 Urine Culture - Preliminary Urine,Voided
[2024-06-26 16:25] LABS: Glucose,Whole Blood 123 mg/dL (70-110)
[2024-06-26 19:54] LABS: Glucose,Whole Blood 133 mg/dL (70-110)
--- NOTE | 2024-06-26 21:38 | P.PN ---
Subjective Progress Note Date: 06/26/24 Principal diagnosis: Reason for follow-up is sepsis and pyelonephritis Patient is a 78-year-old female with a past medical history significant for diabetes mellitus hypertension hyperlipidemia hypothyroidism presenting to the hospital for evaluation of nausea vomiting and also having hematuria, has been diagnosed with sepsis secondary to right-sided pyelonephritis. On today's evaluation that is 06/26/2024, patient did have improvement in her fever pattern with low-grade fever of 99.3 this afternoon, patient is breathing comfortably and is currently on room air, patient denies having any chest pain and cough, patient denies nausea vomiting or diarrhea and no abdominal pain. Patient white count is down to 15.82, creatinine is 1.70 blood and urine with gram-negative Objective - Vital Signs Vital signs: Vital Signs Temp 100 F H 06/26/24 03:15 Pulse 114 H 06/26/24 03:15 Resp 15 06/26/24 03:15 BP 137/58 06/26/24 03:15 Pulse Ox 94 L 06/26/24 03:15 FiO2 Intake & Output 06/25/24 06/26/24 06/26/24 18:59 06:59 18:59 Intake Total 2320 237 118 Output Total 200 500 Balance 2120 -263 118 Weight 67.8 kg Intake: Intake, IV Titration 1600 Amount Sodium Chloride 0.9% 1, 1100 000 ml @ 100 mls/hr IV . Q10H [facility] Rx#:[id number] Sodium Chloride 0.9% 500 500 ml 500 ml @ 999 mls/hr IV .Q31M ONE Rx#:[id number] Oral 720 237 118 Output: Urine 200 500 Other: Voiding Method Toilet Toilet # Voids 1 - Exam GENERAL DESCRIPTION: An elderly female lying in bed in no distress RESPIRATORY SYSTEM: Unlabored breathing , decreased breath sounds at bases HEART: S1 S2 regular rate and rhythm , ABDOMEN: Soft , no tenderness EXTREMITIES: No edema feet - Labs CBC & Chem 7: 06/26/24 07:06 06/26/24 07:06 Labs: Abnormal Lab Results - Last 24 Hours (Table) 06/25/24 06/25/24 06/26/24 Range/Units 16:24 19:59 07:06 WBC (4.50-10.00) 10*3/uL RBC (4.10-5.20) 10*6/uL Hgb (12.0-15.0) g/dL Hct (37.2-46.3) % MCV (80.0-97.0) fL MCHC (32.0-37.0) g/dL Plt Count (140-440) 10*3/uL Immature Gran # (0.00-0.04) 10*3/uL Neutrophils # (1.80-7.70) 10*3/uL Lymphocytes # (0.90-5.00) 10*3/uL Chloride (98-107) mmol/L Carbon Dioxide (22-30) mmol/L BUN (7-17) mg/dL Creatinine (0.52-1.04) mg/dL POC Glucose (mg/dL) 114 H 126 H (70-110) mg/dL Hemoglobin A1c 6.2 H (<=6.0) % Total Protein (6.3-8.2) g/dL Albumin (3.5-5.0) g/dL 06/26/24 06/26/24 Range/Units 07:06 07:06 WBC 15.82 H (4.50-10.00) 10*3/uL RBC 2.46 L (4.10-5.20) 10*6/uL Hgb 7.8 L (12.0-15.0) g/dL Hct 25.1 L (37.2-46.3) % MCV 102.0 H (80.0-97.0) fL MCHC 31.1 L (32.0-37.0) g/dL Plt Count 134 L (140-440) 10*3/uL Immature Gran # 0.18 H (0.00-0.04) 10*3/uL Neutrophils # 14.46 H (1.80-7.70) 10*3/uL Lymphocytes # 0.54 L (0.90-5.00) 10*3/uL Chloride 109 H (98-107) mmol/L Carbon Dioxide 20 L (22-30) mmol/L BUN 31 H (7-17) mg/dL Creatinine 1.70 H (0.52-1.04) mg/dL POC Glucose (mg/dL) (70-110) mg/dL Hemoglobin A1c (<=6.0) % Total Protein 5.3 L (6.3-8.2) g/dL Albumin 2.8 L (3.5-5.0) g/dL Microbiology - Last 24 Hours (Table) 06/24/24 15:15 Blood Culture Gram Stain - Preliminary Blood Blood Culture - Preliminary Gram Neg Bacilli 06/24/24 15:15 Blood Culture Gram Stain - Preliminary Blood Blood Culture - Preliminary Gram Neg Bacilli Molecular ID 06/24/24 16:10 Urine Culture - Preliminary Urine,Voided Assessment and Plan (1) Pyelonephritis Current Visit: Yes Status: Acute Code(s): N12 - TUBULO-INTERSTITIAL N EPHRITIS, NOT SPCF ACUTE OR CHRONIC SNOMED Code(s): 47764995 (2) Sepsis Current Visit: Yes Status: Acute Code(s): A41.9 - SEPSIS, UNSPECIFIED ORGANISM SNOMED Code(s): 06780456 Plan: 1patient presented to hospital with sepsis in this patient who did have a fever tachycardia elevated white count meeting currently for SIRS/sepsis source is right-sided pyelonephritis with significant abnormality to the right kidney seen on the CAT scan did not mention any stones likely related to enteric gram- negative pathogen. 2patient with gram-negative bacteremia source likely right-sided pyelonephritis. 3patient did have improvement to feel better and white count is trending down we will treat with Rocephin 2 g daily empirically while waiting for the culture to finalize. Dictation was produced using [employer] dictation software. please excuse any grammatical, word or spelling errors. Time with Patient: Less than 30
[2024-06-27 06:11] LABS: Glucose,Whole Blood 98 mg/dL (70-110)
[2024-06-27 09:21] LABS: Basophils # (A) 0.02 10*3/uL (0.00-0.10); Basophils % (A) 0.2 %; Eosinophils # (A) 0.37 10*3/uL (0.04-0.35); Eosinophils % (A) 3.4 %; HCT 22.1 % (37.2-46.3); Lymphocytes # (A) 0.57 10*3/uL (0.90-5.00); Lymphocytes % (A) 5.3 %; MCH 31.1 pg (27.0-32.0); MCHC 31.7 g/dL (32.0-37.0); MCV 98.2 fL (80.0-97.0); Mean Platelet Volume 11.5 fL (9.5-12.2); Monocytes # (A) 0.56 10*3/uL (0.20-1.00); Monocytes % (A) 5.2 %; Neutrophils % (A) 84.8 %; Platelet Count 128 10*3/uL (140-440); RBC 2.25 10*6/uL (4.10-5.20); WBC 10.74 10*3/uL (4.50-10.00)
[2024-06-27 09:40] LABS: ALT 19 U/L (4-34); AST 32 U/L (14-36); African American GFR (CKD) 37 (>60 ml/min/1.73 sqM); Albumin 2.5 g/dL (3.5-5.0); Alkaline Phosphatase 112 U/L (38-126); Anion Gap 6 mmol/L; Blood Urea Nitrogen 28 mg/dL (7-17); Calcium 8.7 mg/dL (8.4-10.2); Carbon Dioxide 20 mmol/L (22-30); Chloride 110 mmol/L (98-107); Glucose 98 mg/dL (74-99); Non-African American GFR(CKD) 32 (>60 ml/min/1.73 sqM); Potassium 3.6 mmol/L (3.5-5.1); Sodium 136 mmol/L (137-145); Total Bilirubin 0.7 mg/dL (0.2-1.3)
[2024-06-27 09:56] LABS: Magnesium 1.8 mg/dL (1.6-2.3)
[2024-06-27 11:07] LABS: Glucose,Whole Blood 104 mg/dL (70-110)
--- NOTE | 2024-06-27 13:40 | P.PN ---
Subjective Progress Note Date: 06/27/24 78-year-old female with a past medical history significant for diabetes mellitus hypertension hyperlipidemia hypothyroidism presenting to the hospital for evaluation of nausea vomiting and also having hematuria patient symptoms started the day before presentation to the hospital he did start ini tially with nausea vomiting and subsequently did have hematuria and also urinary frequency and urgency as well as suprapubic discomfort patient did have chills in her presentation to the hospital patient was febrile with a temperature of 103 F patient was tachycardic but not hypotensive or hypoxic no need for supplemental oxygen did have a white count of 19.38 BUN and creatinine has been elevated electrolytes are normal liver enzymes are normal urine has been positive blood cultures came back positive with gram-negative bacilli; ID is on board Objective - Vital Signs Vital signs: Vital Signs Temp 99.1 F 06/27/24 04:40 Pulse 94 06/27/24 04:40 Resp 17 06/27/24 04:40 BP 144/73 06/27/24 04:40 Pulse Ox 94 L 06/27/24 04:40 FiO2 Intake & Output 06/26/24 06/27/24 06/27/24 18:59 06:59 18:59 Intake Total 118 Output Total 350 500 Balance -232 -500 Weight 69.2 kg Intake: Oral 118 Output: Urine 350 500 Other: Voiding Method Toilet Toilet - Exam GENERAL DESCRIPTION: Elderly female up in the chair, no distress. No tachypnea or accessory muscle of respiration use. HEENT: Shows Pallor , no scleral icterus. Oral mucous membrane is dry. No pharyngeal erythema or thrush NECK: Trachea central, no thyromegaly. LUNGS: Unlabored breathing. Clear to auscultation anteriorly. No wheeze or crackle. HEART: S1, S2, regular rate and rhythm. No loud murmur ABDOMEN: Soft, no tenderness , guarding or rigidity, no organomegaly EXTREMITIES: No edema of feet. SKIN: No rash, no masses palpable. NEUROLOGICAL: The patient is awake, alert, oriented x3, mood and affect normal. - Labs CBC & Chem 7: 06/27/24 08:36 06/27/24 08:36 Labs: Abnormal Lab Results - Last 24 Hours (Table) 06/26/24 06/26/24 06/26/24 Range/Units 07:06 16:23 19:50 POC Glucose (mg/dL) 123 H 133 H (70-110) mg/dL Hemoglobin A1c 6.2 H (<=6.0) % Microbiology - Last 24 Hours (Table) 06/24/24 16:10 Urine Culture - Final Urine,Voided 06/24/24 15:15 Blood Culture Gram Stain - Preliminary Blood Blood Culture - Preliminary Gram Neg Bacilli 06/24/24 15:15 Blood Culture Gram Stain - Preliminary Blood Blood Culture - Preliminary Gram Neg Bacilli Molecular ID Assessment and Plan Assessment: 1. Acute pyelonephritis with sepsis with gram-negative bacilli -Patient remains on IV antibiotic in the form of Rocephin 2 g IV daily - Blood cultures to/2 positive for GNB; urine culture reveals mixed josep - Will continue with IV antibiotics at this time; ID on board and await further recommendation - Monitor CBC, CRP and procalcitonin 2. Gram-negative bacteremia; blood culture 2/2 positive for GNB; continue patient on Rocephin 2 g IV daily; further recommendations once final culture results are available 3. Hypertension; hydrochlorothiazide 12.5 mg; losartan 100 mg once every day. 4. Hyperlipidemia; atorvastatin 20 mg daily 5. Diabetes mellitus type 2; Continue patient on sliding scale insulin, continue patient also on Actos 30 mg orally once every day. 6. Iron deficiency anemia. Continue iron supplement 325 mg orally twice every day. 7. Acute kidney injury on chronic kidney disease stage IIIb due to vasomotor nephropathy and acute tubular necrosis due to intractable nausea and vomiting. Appears to be back to baseline, decrease IV fluid to 50 cc an hour. DVT prophylaxis. Continue patient on heparin 5000 units subcutaneous every 12 hours. CODE STATUS; full code
[2024-06-27 16:22] LABS: Glucose,Whole Blood 93 mg/dL (70-110)
[2024-06-27 19:50] LABS: Glucose,Whole Blood 128 mg/dL (70-110)
[2024-06-28 06:21] LABS: Glucose,Whole Blood 85 mg/dL (70-110)
[2024-06-28 07:15] LABS: Reticulocyte % 2.04 % (0.10-1.80)
[2024-06-28 07:56] LABS: HCT 23.2 % (37.2-46.3); HGB 7.3 g/dL (12.0-15.0); MCH 30.5 pg (27.0-32.0); MCHC 31.5 g/dL (32.0-37.0); MCV 97.1 fL (80.0-97.0); Mean Platelet Volume 10.7 fL (9.5-12.2); Platelet Count 156 10*3/uL (140-440); RBC 2.39 10*6/uL (4.10-5.20); RDW 14.9 % (11.5-14.5)
[2024-06-28 07:58] LABS: Protein, Total 4.6 g/dL (6.2-8.2)
[2024-06-28 08:08] LABS: African American GFR (CKD) 38 (>60 ml/min/1.73 sqM); Anion Gap 7 mmol/L; Blood Urea Nitrogen 21 mg/dL (7-17); Calcium 8.9 mg/dL (8.4-10.2); Carbon Dioxide 21 mmol/L (22-30); Chloride 109 mmol/L (98-107); Glucose 84 mg/dL (74-99); Non-African American GFR(CKD) 33 (>60 ml/min/1.73 sqM); Potassium 3.6 mmol/L (3.5-5.1); Sodium 137 mmol/L (137-145)
[2024-06-28 08:16] LABS: % Iron Saturation 7.47 (12.00-45.00)
[2024-06-28 11:23] LABS: Glucose,Whole Blood 109 mg/dL (70-110)
--- NOTE | 2024-06-28 12:00 | P.PN ---
Subjective Progress Note Date: 06/27/24 Principal diagnosis: Reason for follow-up is sepsis and pyelonephritis Patient is a 78-year-old female with a past medical history significant for diabetes mellitus hypertension hyperlipidemia hypothyroidism presenting to the hospital for evaluation of nausea vomiting and also having hematuria, has been diagnosed with sepsis secondary to right-sided pyelonephritis. On today's evaluation that is 06/27/2024, Patient did have improvement in her fever pattern and is afebrile this morning patient is breathing comfortably no chest pain shortness of breath or cough no nausea vomiting no abdominal pain no diarrhea. Patient white count is down to 10.74 creatinine is 1.56 blood and urine with the Proteus Objective - Vital Signs Vital signs: Vital Signs Temp 99.8 F H 06/27/24 19:40 Pulse 94 06/27/24 19:40 Resp 17 06/27/24 19:40 BP 126/66 06/27/24 19:40 Pulse Ox 96 06/27/24 19:40 FiO2 Intake & Output 06/27/24 06/27/24 06/28/24 06:59 18:59 06:59 Intake Total 600 10 Output Total 500 550 Balance -500 50 10 Weight 69.2 kg Intake: IV 10 Invasive Line 1 10 Oral 600 Output: Urine 500 550 Other: Voiding Method Toilet Toilet Toilet - Exam GENERAL DESCRIPTION: An elderly female lying in bed in no distress RESPIRATORY SYSTEM: Unlabored breathing , decreased breath sounds at bases HEART: S1 S2 regular rate and rhythm , ABDOMEN: Soft , no tenderness EXTREMITIES: No edema feet - Labs CBC & Chem 7: 06/28/24 07:07 06/28/24 07:07 Labs: Abnormal Lab Results - Last 24 Hours (Table) 06/27/24 06/27/24 06/27/24 Range/Units 08:36 08:36 19:49 WBC 10.74 H (4.50-10.00) 10*3/uL RBC 2.25 L (4.10-5.20) 10*6/uL Hgb 7.0 L (12.0-15.0) g/dL Hct 22.1 L (37.2-46.3) % MCV 98.2 H (80.0-97.0) fL MCHC 31.7 L (32.0-37.0) g/dL Plt Count 128 L (140-440) 10*3/uL Immature Gran # 0.12 H (0.00-0.04) 10*3/uL Neutrophils # 9.10 H (1.80-7.70) 10*3/uL Lymphocytes # 0.57 L (0.90-5.00) 10*3/uL Eosinophils # 0.37 H (0.04-0.35) 10*3/uL Sodium 136 L (137-145) mmol/L Chloride 110 H (98-107) mmol/L Carbon Dioxide 20 L (22-30) mmol/L BUN 28 H (7-17) mg/dL Creatinine 1.56 H (0.52-1.04) mg/dL POC Glucose (mg/dL) 128 H (70-110) mg/dL Total Protein 5.0 L (6.3-8.2) g/dL Albumin 2.5 L (3.5-5.0) g/dL Microbiology - Last 24 Hours (Table) 06/24/24 15:15 Blood Culture Gram Stain - Final Blood Blood Culture - Final Proteus mirabilis 06/24/24 15:15 Blood Culture Gram Stain - Final Blood Blood Culture - Final Proteus mirabilis Molecular ID 06/24/24 16:10 Urine Culture - Final Urine,Voided Assessment and Plan (1) Pyelonephritis Current Visit: Yes Status: Acute Code(s): N12 - TUBULO-INTERSTITIAL NEPHRITIS, NOT SPCF ACUTE OR CHRONIC SNOMED Code(s): 30570737 (2) Sepsis Current Visit: Yes Status: Acute Code(s): A41.9 - SEPSIS, UNSPECIFIED ORGANISM SNOMED Code(s): 45145033 Plan: 1patient presented to hospital with sepsis in this patient who did have a fever tachycardia elevated white count meeting currently for SIRS/sepsis source is right-sided pyelonephritis with significant abnormality to the right kidney seen on the CAT scan did not mention any stones likely related to enteric gram- negative pathogen. 2patient with gram-negative bacteremia source likely right-sided pyelonephritis. 3patient did have improvement to feel better and white count is trending down 4-we will continue with Rocephin 2 g daily and plan to finish therapy with oral antibiotics. Dictation was produced using [employer] software. please excuse any grammatical, word or spelling errors. Time with Patient: Less than 30
[2024-06-28 16:19] LABS: Glucose,Whole Blood 182 mg/dL (70-110)
--- NOTE | 2024-06-28 18:17 | P.PN ---
Subjective Progress Note Date: 06/28/24 78-year-old female with a past medical history significant for diabetes mellitus hypertension hyperlipidemia hypothyroidism presenting to the hospital for evaluation of nausea vomiting and also having hematuria patient symptoms started the day before presentation to the hospital he did start ini tially with nausea vomiting and subsequently did have hematuria and also urinary frequency and urgency as well as suprapubic discomfort patient did have chills in her presentation to the hospital patient was febrile with a temperature of 103 F patient was tachycardic but not hypotensive or hypoxic no need for supplemental oxygen did have a white count of 19.38 BUN and creatinine has been elevated electrolytes are normal liver enzymes are normal urine has been positive blood cultures came back positive with gram-negative bacilli; ID is on board 06/28/2024 Patient is seen and evaluated in room at bedside; discussed with nursing staff; no specific complaints reported Vital signs are reviewed and stable with temperature of 99.4, pulse 94, respiration 18 and blood pressure 165/74 Lab review reveals WBC of 7.4, hemoglobin of 7.3 and platelet count of 156, sodium 137, potassium 3.6, BUN/creatinine of 21/1.51 -patient presented to hospital with sepsis in this patient who did have a fever tachycardia elevated white count meeting currently for SIRS/sepsis source is ri ght-sided pyelonephritis with significant abnormality to the right kidney seen on the CAT scan did not mention any stones likely related to enteric gram- negative pathogen. -patient with gram-negative bacteremia source likely right-sided pyelonephritis. -patient did have improvement to feel better and white count is trending down -we will continue with Rocephin 2 g daily and plan to finish therapy with oral antibiotics. Objective - Vital Signs Vital signs: Vital Signs Temp 99.5 F 06/28/24 04:10 Pulse 94 06/28/24 04:10 Resp 17 06/28/24 04:10 BP 153/66 06/28/24 04:10 Pulse Ox 96 06/28/24 04:10 FiO2 Intake & Output 06/27/24 06/28/24 06/28/24 18:59 06:59 18:59 Intake Total 600 20 Output Total 550 800 Balance 50 -780 Weight 69.4 kg Intake: IV 20 Invasive Line 1 20 Oral 600 Output: Urine 550 800 Other: Voiding Method Toilet Toilet - Exam GENERAL DESCRIPTION: Elderly female up in the chair, no distress. No tachypnea or accessory muscle of respiration use. HEENT: Shows Pallor , no scleral icterus. Oral mucous membrane is dry. No pharyngeal erythema or thrush NECK: Trachea central, no thyromegaly. LUNGS: Unlabored breathing. Clear to auscultation anteriorly. No wheeze or crackle. HEART: S1, S2, regular rate and rhythm. No loud murmur ABDOMEN: Soft, no tenderness , guarding or rigidity, no organomegaly EXTREMITIES: No edema of feet. SKIN: No rash, no masses palpable. NEUROLOGICAL: The patient is awake, alert, oriented x3, mood and affect normal. - Labs CBC & Chem 7: 06/28/24 07:07 06/28/24 07:07 Labs: Abnormal Lab Results - Last 24 Hours (Table) 06/27/24 06/27/24 06/27/24 Range/Units 08:36 08:36 13:20 WBC 10.74 H (4.50-10.00) 10*3/uL RBC 2.25 L (4.10-5.20) 10*6/uL Hgb 7.0 L (12.0-15.0) g/dL Hct 22.1 L (37.2-46.3) % MCV 98.2 H (80.0-97.0) fL MCHC 31.7 L (32.0-37.0) g/dL Plt Count 128 L (140-440) 10*3/uL Immature Gran # 0.12 H (0.00-0.04) 10*3/uL Neutrophils # 9.10 H (1.80-7.70) 10*3/uL Lymphocytes # 0.57 L (0.90-5.00) 10*3/uL Eosinophils # 0.37 H (0.04-0.35) 10*3/uL Retic Count 2.04 H (0.10-1.80) % Sodium 136 L (137-145) mmol/L Chloride 110 H (98-107) mmol/L Carbon Dioxide 20 L (22-30) mmol/L BUN 28 H (7-17) mg/dL Creatinine 1.56 H (0.52-1.04) mg/dL POC Glucose (mg/dL) (70-110) mg/dL Total Protein 5.0 L (6.3-8.2) g/dL Albumin 2.5 L (3.5-5.0) g/dL 06/27/24 06/28/24 Range/Units 19:49 07:07 WBC (4.50-10.00) 10*3/uL RBC 2.39 L (4.10-5.20) 10*6/uL Hgb 7.3 L (12.0-15.0) g/dL Hct 23.2 L (37.2-46.3) % MCV 97.1 H (80.0-97.0) fL MCHC 31.5 L (32.0-37.0) g/dL Plt Count (140-440) 10*3/uL Immature Gran # (0.00-0.04) 10*3/uL Neutrophils # (1.80-7.70) 10*3/uL Lymphocytes # (0.90-5.00) 10*3/uL Eosinophils # (0.04-0.35) 10*3/uL Retic Count (0.10-1.80) % Sodium (137-145) mmol/L Chloride (98-107) mmol/L Carbon Dioxide (22-30) mmol/L BUN (7-17) mg/dL Creatinine (0.52-1.04) mg/dL POC Glucose (mg/dL) 128 H (70-110) mg/dL Total Protein (6.3-8.2) g/dL Albumin (3.5-5.0) g/dL Microbiology - Last 24 Hours (Table) 06/24/24 15:15 Blood Culture Gram Stain - Final Blood Blood Culture - Final Proteus mirabilis 06/24/24 15:15 Blood Culture Gram Stain - Final Blood Blood Culture - Final Proteus mirabilis Molecular ID Assessment and Plan Assessment: 1. Acute pyelonephritis with sepsis with gram-negative bacilli -Patient remains on IV antibiotic in the form of Rocephin 2 g IV daily - Blood cultures to/2 positive for GNB; urine culture reveals mixed josep - Will continue with IV antibiotics at this time; ID on board and await further recommendation - Monitor CBC, CRP and procalcitonin 2. Gram-negative bacteremia; blood culture 2/2 positive for GNB; continue patient on Rocephin 2 g IV daily; further recommendations once final culture results are available 3. Hypertension; hydrochlorothiazide 12.5 mg; losartan 100 mg once every day. 4. Hyperlipidemia; atorvastatin 20 mg daily 5. Diabetes mellitus type 2; Continue patient on sliding scale insulin, continue patient also on Actos 30 mg orally once every day. 6. Iron deficiency anemia. Continue iron supplement 325 mg orally twice every day. 7. Acute kidney injury on chronic kidney disease stage IIIb due to vasomotor nephropathy and acute tubular necrosis due to intractable nausea and vomiting. Appears to be back to baseline, decrease IV fluid to 50 cc an hour. DVT prophylaxis. Continue patient on heparin 5000 units subcutaneous every 12 hours. CODE STATUS; full code
[2024-06-28] MEDS: PANTOPRAZOLE 40 MG/10 ML VIAL IVP SCH (19:54)
[2024-06-28 20:16] LABS: Glucose,Whole Blood 161 mg/dL (70-110)
[2024-06-29 05:26] LABS: Basophils # (A) 0.05 10*3/uL (0.00-0.10); Basophils % (A) 0.6 %; Eosinophils # (A) 0.34 10*3/uL (0.04-0.35); Eosinophils % (A) 4.1 %; HCT 21.1 % (37.2-46.3); Lymphocytes % (A) 12.1 %; MCHC 33.2 g/dL (32.0-37.0); MCV 96.3 fL (80.0-97.0); Mean Platelet Volume 10.3 fL (9.5-12.2); Monocytes # (A) 0.78 10*3/uL (0.20-1.00); Monocytes % (A) 9.4 %; Neutrophils # (A) 5.65 10*3/uL (1.80-7.70); Neutrophils % (A) 68.2 %; Platelet Count 158 10*3/uL (140-440); RBC 2.19 10*6/uL (4.10-5.20); RDW 14.9 % (11.5-14.5); WBC 8.28 10*3/uL (4.50-10.00)
[2024-06-29 05:58] LABS: Glucose,Whole Blood 108 mg/dL (70-110)
--- NOTE | 2024-06-29 07:18 | P.PN ---
Subjective Progress Note Date: 06/28/24 Principal diagnosis: Reason for follow-up is sepsis and pyelonephritis Patient is a 78-year-old female with a past medical history significant for diabetes mellitus hypertension hyperlipidemia hypothyroidism presenting to the hospital for evaluation of nausea vomiting and also having hematuria, has been diagnosed with sepsis secondary to right-sided pyelonephritis. On today's evaluation that is 06/28/2024,the patient denies any fever or any chills, patient is breathing comfortably on room air, the patient denies chest pain shortness of breath and no significant cough, patient denies abdominal pain, no nausea vomiting or diarrhea. Patient white count normalized to 7.40 creatinine is 1.51 blood and urine with a Proteus consider pathogen Objective - Vital Signs Vital signs: Vital Signs Temp 99.8 F H 06/28/24 08:00 Pulse 95 06/28/24 08:00 Resp 16 06/28/24 08:00 BP 151/71 06/28/24 08:00 Pulse Ox 95 06/28/24 08:00 FiO2 Intake & Output 06/27/24 06/28/24 06/28/24 18:59 06:59 18:59 Intake Total 600 20 190 Output Total 550 800 Balance 50 -780 190 Weight 69.4 kg Intake: IV 20 10 Invasive Line 1 20 10 Oral 600 180 Output: Urine 550 800 Other: Voiding Method Toilet Toilet Toilet - Exam GENERAL DESCRIPTION: An elderly female lying in bed in no distress RESPIRATORY SYSTEM: Unlabored breathing , decreased breath sounds at bases HEART: S1 S2 regular rate and rhythm , ABDOMEN: Soft , no tenderness EXTREMITIES: No edema feet - Labs CBC & Chem 7: 06/29/24 04:53 06/28/24 07:07 Labs: Abnormal Lab Results - Last 24 Hours (Table) 06/27/24 06/27/24 06/27/24 Range/Units 13:20 13:20 13:20 RBC (4.10-5.20) 10*6/uL Hgb (12.0-15.0) g/dL Hct (37.2-46.3) % MCV (80.0-97.0) fL MCHC (32.0-37.0) g/dL Retic Count 2.04 H (0.10-1.80) % Haptoglobin 265.0 H (31.2-198.0) mg/dL Chloride (98-107) mmol/L Carbon Dioxide (22-30) mmol/L BUN (7-17) mg/dL Creatinine (0.52-1.04) mg/dL POC Glucose (mg/dL) (70-110) mg/dL Iron 13 L (50-170) UG/DL TIBC 174 L (228-460) UG/DL % Saturation 7.47 L (12.00-45.00) Transferrin 124.0 L (204.0-354.0) mg/dL Total Protein (PEP) (6.2-8.2) g/dL Vitamin B12 1086.0 H (200.0-944.0) pg/mL 06/27/24 06/27/24 06/28/24 Range/Units 13:20 19:49 07:07 RBC 2.39 L (4.10-5.20) 10*6/uL Hgb 7.3 L (12.0-15.0) g/dL Hct 23.2 L (37.2-46.3) % MCV 97.1 H (80.0-97.0) fL MCHC 31.5 L (32.0-37.0) g/dL Retic Count (0.10-1.80) % Haptoglobin (31.2-198.0) mg/dL Chloride (98-107) mmol/L Carbon Dioxide (22-30) mmol/L BUN (7-17) mg/dL Creatinine (0.52-1.04) mg/dL POC Glucose (mg/dL) 128 H (70-110) mg/dL Iron (50-170) UG/DL TIBC (228-460) UG/DL % Saturation (12.00-45.00) Transferrin (204.0-354.0) mg/dL Total Protein (PEP) 4.6 L (6.2-8.2) g/dL Vitamin B12 (200.0-944.0) pg/mL 06/28/24 Range/Units 07:07 RBC (4.10-5.20) 10*6/uL Hgb (12.0-15.0) g/dL Hct (37.2-46.3) % MCV (80.0-97.0) fL MCHC (32.0-37.0) g/dL Retic Count (0.10-1.80) % Haptoglobin (31.2-198.0) mg/dL Chloride 109 H (98-107) mmol/L Carbon Dioxide 21 L (22-30) mmol/L BUN 21 H (7-17) mg/dL Creatinine 1.51 H (0.52-1.04) mg/dL POC Glucose (mg/dL) (70-110) mg/dL Iron (50-170) UG/DL TIBC (228-460) UG/DL % Saturation (12.00-45.00) Transferrin (204.0-354.0) mg/dL Total Protein (PEP) (6.2-8.2) g/dL Vitamin B12 (200.0-944.0) pg/mL Microbiology - Last 24 Hours (Table) 06/24/24 15:15 Blood Culture Gram Stain - Final Blood Blood Culture - Final Proteus mirabilis 06/24/24 15:15 Blood Culture Gram Stain - Final Blood Blood Culture - Final Proteus mirabilis Molecular ID Assessment and Plan (1) Pyelonephritis Current Visit: Yes Status: Acute Priority: High Code(s): N12 - TUBULO-INTE RSTITIAL NEPHRITIS, NOT SPCF ACUTE OR CHRONIC SNOMED Code(s): 03627544 (2) Sepsis Current Visit: Yes Status: Acute Priority: High Code(s): A41.9 - SEPSIS, UNSPECIFIED ORGANISM SNOMED Code(s): 08752991 Plan: 1patient presented to hospital with sepsis in this patient who did have a fever tachycardia elevated white count meeting currently for SIRS/sepsis source is right-sided pyelonephritis with significant abnormality to the right kidney seen on the CAT scan did not mention any stones likely related to enteric gram- negative pathogen. 2patient with Proteus bacteremia source likely right-sided pyelonephritis. 3patient did have improvement to feel better and white count normalized 4-patient will be treated with Rocephin 2 g daily and plan to finish therapy with oral Ceftin x 10 days Dictation was produced using [employer] software. please excuse any grammatical, word or spelling errors. Time with Patient: Less than 30
--- NOTE | 2024-06-29 07:56 | P.CONS ---
History of Present Illness - Reason for Consult Consult date: 06/28/24 anemia Requesting physician: Stephan Head - Chief Complaint n/v, hematura - History of Present Illness Patient is a 78-year-old female who presented to emergency room for complaints of nausea vomiting, fever, and hematuria. Consult was placed for anemia. Patient reports she began having diarrhea and vaginal yeast infection approximately 1 month ago. Also reports she was noting intermittent darker black stools at that time. Patient had stool studies obtained at that time which were negative for infection. Patient reports over the last month she has had intermittent dark stools, last episode 2 days ago. Patient does take daily aspirin. Upon admit CT abdomen and pelvis concerning for right pyelonephritis. UA showing elevated RBCs and WBCs. Patient was subsequently started on IV antibiotics. Blood cultures also positive for P. mirabilis. Upon admit leuko cytosis 16.5, hemoglobin 8.2, MCV 96.1, platelets 152,000. Today WBC now normal at 7.4, hemoglobin 7.3, platelets 156,000. Upon trending labs patient has had mild anemia in the 10-11 range since 2019. Patient does take daily oral iron. Nutritional studies obtained, iron saturation 7.4%, ferritin 122, vitamin B12 1086, folate 26.4. Patient also has known history of CKD with MYKE noted on admit. Kidney function is improving, creatinine today 1.51, GFR 33. Review of Systems 10 point ROS is negative except as stated in the HPI Past Medical History Past Medical History: Diabetes Mellitus, Eye Disorder, Hyperlipidemia, Hyp ertension, Thyroid Disorder Additional Past Medical History / Comment(s): low iron. CATARACT LT EYE History of Any Multi-Drug Resistant Organisms: None Reported Past Surgical History: Breast Surgery, Cholecystectomy, Tonsillectomy Additional Past Surgical History / Comment(s): CYSTS REMOVED FROM BILAT BREASTS. CATARACT RT EYE REMOVED WITH LENS IMPLANTS Past Anesthesia/Blood Transfusion Reactions: No Reported Reaction Past Psychological History: No Psychological Hx Reported Smoking Status: Never smoker Past Alcohol Use History: None Reported Past Drug Use History: None Reported - Past Family History Sister(s) Family Medical History: Cancer Brother(s) Family Medical History: Cancer Additional Family Medical History / Comment(s): 2 BROTHERS WITH CANCER Medications and Allergies Home Medications Medication Instructions Recorded Confirmed Type Ascorbic Acid [Vitamin C] 1,000 mg PO DAILY 01/10/22 06/24/24 History Aspirin EC [Ecotrin Low Dose] 162 mg PO DAILY 01/10/22 06/24/24 History Ferrous Sulfate [Feosol] 325 mg PO BID 01/10/22 06/24/24 History Olmesartan/Hydrochlorothiazide 1 tab PO DAILY 01/10/22 06/24/24 History [Olmesartan-Hctz 40-12.5 mg Tab] Pioglitazone [Actos] 30 mg PO W/LUNCH 01/10/22 06/24/24 History Atorvastatin [Lipitor] 20 mg PO DAILY 06/24/24 06/24/24 History Calcium Carbonate [Calcium] 600 mg PO BID 06/24/24 06/24/24 History Allergies Allergy/AdvReac Type Severity Reaction Status Date / Time sitagliptin [From ] AdvReac Diarrhea Verified 06/24/24 17:57 Physical Exam Vitals: Vital Signs Temp Pulse Resp BP Pulse Ox 06/28/24 08:00 99.8 F H 95 16 151/71 95 06/28/24 04:10 99.5 F 94 17 153/66 96 06/27/24 23:00 99 F 96 16 146/66 95 06/27/24 19:40 99.8 F H 94 17 126/66 96 06/27/24 16:00 99.2 F 86 16 150/77 97 06/27/24 14:00 84 18 06/27/24 12:00 98.8 F 84 18 145/73 96 Intake and Output 06/27/24 06/28/24 06/28/24 22:59 06:59 14:59 Intake Total 190 10 190 Output Total 550 800 Balance -360 -790 190 Intake: IV 10 10 10 Invasive Line 1 10 10 10 Oral 180 180 Output: Urine 550 800 Other: Voiding Method Toilet Toilet Toilet Weight 69.4 kg - Constitutional General appearance: no acute distress - EENT Eyes: anicteric sclerae, EOMI ENT: hearing grossly normal - Respiratory breathing is even and unlabored - Cardiovascular skin warm and dry - Gastrointestinal General gastrointestinal: soft, no tenderness - Integumentary Integumentary: no cyanotic, no jaundiced, pale - Neurologic Neurologic: CNII-XII intact - Musculoskeletal Musculoskeletal: strength equal bilaterally - Psychiatric Psychiatric: A&O x's 3 Results CBC & Chem 7: 06/29/24 04:53 06/28/24 07:07 Labs: Abnormal Lab Results - Last 24 Hours (Table) 06/27/24 06/27/24 06/27/24 Range/Units 13:20 13:20 13:20 RBC (4.10-5.20) 10*6/uL Hgb (12.0-15.0) g/dL Hct (37.2-46.3) % MCV (80.0-97.0) fL MCHC (32.0-37.0) g/dL Retic Count 2.04 H (0.10-1.80) % Haptoglobin 265.0 H (31.2-198.0) mg/dL Chloride (98-107) mmol/L Carbon Dioxide (22-30) mmol/L BUN (7-17) mg/dL Creatinine (0.52-1.04) mg/dL POC Glucose (mg/dL) (70-110) mg/dL Iron 13 L (50-170) UG/DL TIBC 174 L (228-460) UG/DL % Saturation 7.47 L (12.00-45.00) Transferrin 124.0 L (204.0-354.0) mg/dL Total Protein (PEP) (6.2-8.2) g/dL Vitamin B12 1086.0 H (200.0-944.0) pg/mL 06/27/24 06/27/24 06/28/24 Range/Units 13:20 19:49 07:07 RBC 2.39 L (4.10-5.20) 10*6/uL Hgb 7.3 L (12.0-15.0) g/dL Hct 23.2 L (37.2-46.3) % MCV 97.1 H (80.0-97.0) fL MCHC 31.5 L (32.0-37.0) g/dL Retic Count (0.10-1.80) % Haptoglobin (31.2-198.0) mg/dL Chloride (98-107) mmol/L Carbon Dioxide (22-30) mmol/L BUN (7-17) mg/dL Creatinine (0.52-1.04) mg/dL POC Glucose (mg/dL) 128 H (70-110) mg/dL Iron (50-170) UG/DL TIBC (228-460) UG/DL % Saturation (12.00-45.00) Transferrin (204.0-354.0) mg/dL Total Protein (PEP) 4.6 L (6.2-8.2) g/dL Vitamin B12 (200.0-944.0) pg/mL 06/28/24 Range/Units 07:07 RBC (4.10-5.20) 10*6/uL Hgb (12.0-15.0) g/dL Hct (37.2-46.3) % MCV (80.0-97.0) fL MCHC (32.0-37.0) g/dL Retic Count (0.10-1.80) % Haptoglobin (31.2-198.0) mg/dL Chloride 109 H (98-107) mmol/L Carbon Dioxide 21 L (22-30) mmol/L BUN 21 H (7-17) mg/dL Creatinine 1.51 H (0.52-1.04) mg/dL POC Glucose (mg/dL) (70-110) mg/dL Iron (50-170) UG/DL TIBC (228-460) UG/DL % Saturation (12.00-45.00) Transferrin (204.0-354.0) mg/dL Total Protein (PEP) (6.2-8.2) g/dL Vitamin B12 (200.0-944.0) pg/mL Microbiology - Last 24 Hours (Table) 06/24/24 15:15 Blood Culture Gram Stain - Final Blood Blood Culture - Final Proteus mirabilis 06/24/24 15:15 Blood Culture Gram Stain - Final Blood Blood Culture - Final Proteus mirabilis Molecular ID CT scan - abdomen: report reviewed CT scan - pelvis: report reviewed Assessment and Plan (1) Anemia Current Visit: Yes Status: Acute Priority: Medium Code(s): D64.9 - ANEMIA, UNSPECIFIED SNOMED Code(s): 059090685 (2) Pyelonephritis Current Visit: Yes Status: Acute Priority: High Code(s): N12 - TUBULO- INTERSTITIAL NEPHRITIS, NOT SPCF ACUTE OR CHRONIC SNOMED Code(s): 54086146 (3) Sepsis Current Visit: Yes Status: Acute Priority: High Code(s): A41.9 - SEPSIS, UNSPECIFIED ORGANISM SNOMED Code(s): 09724708 Plan: Bacteremia, pyleonephritis: Presented to emergency room for complaints of nausea, vomiting, fever, and hem aturia. -Upon admit CT abdomen and pelvis concerning for right pyelonephritis. UA showing elevated RBCs and WBCs. Blood cultures positive for P. mirabilis. -Continues on IV antibiotics. -Fevers have subsided -ID and urology following Anemia: Patient reports over the last month she has had intermittent dark stools, last episode 2 days ago. She takes aspirin 162mg daily. Upon trending labs patient has had mild anemia in the 10-11 range since 2019. She takes oral iron. Patient also has a history of stage 3 CKD. -Upon admit CBC showed leukocytosis with WBC 16.5, hemoglobin 8.2, MCV 96.1, platelets 152,000. Mild thrombocytopenia was noted during admit, but are normal today at 156,000. Today WBC normal at 7.4, hemoglobin 7.3. -Nutritional studies showing iron saturation 7.4%, ferritin 122, vitamin B12 1086, folate 26.4. Will hold IV iron at this time, due to noted bacteremia. This can be given in outpt setting -Hemolysis labs appear negative, pending LDH -Pancytopenia workup and erythropoietin ordered -Due to intermittent black stools and KATHY, will hold aspirin and consult surgery for EDG evaluation -Anemia appears multifactorial r/t CKD/MYKE, sepsis, and possible GI blood loss -Continue to monitor CBC. Transfuse for hgb < 7 or if symptomatic
[2024-06-29 08:35] VITALS: BP 149/76; PULSE 88; RESP 14; TEMP 99.6
--- NOTE | 2024-06-29 09:27 | P.PN ---
Subjective Progress Note Date: 06/29/24 HISTORY OF PRESENT ILLNESS: This is a 78-year-old female with a previous medical history signif icant for hypertension and hypertensive cardiovascular disease, mixed hyperlipidemia, diabetes mellitus type 2, chronic kidney disease stage IIIa, iron deficiency anemia, patient presented to the office yesterday because of right lower quadrant abdominal pain associated with intractable nausea and v omiting not able to keep anything down, she was apparently quite dehydrated, was not able to keep anything down, her heart rate was around 135, EKG showed sinus tachycardia, she was referred to go to the ER for IV fluid resuscitation, and a CT scan of the abdomen pelvis, this did show evidence of right stranding of the right the right kidney, without evidence of any acute stone, patient was started on IV antibiotic in the form of Rocephin 2 g piggyback every 24 hours, she was given IV fluid resuscitation in the form of normal saline at 100 cc an hour, she was given a bolus of normal saline of a liter in the ER, then she was given another 500 cc on the floor, her blood pressure continues to be soft at this time, blood cultures are positive for Proteus which would respond well to the ceftriaxone at this time, infectious disease consultation as well as urology consultation was obtained. 06/26: Patient sitting up in her bed complaining of increased nausea had episode of vomiting not able to eat much today, she is not able to drink much either, her daughter was at the bedside, she was updated about her current condition, she appeared to have some significant swelling in both eyelids and face, we will decrease her IV fluid to 50 cc an hour, monitor the patient symptoms very closely, continue ceftriaxone 2 g piggyback every 24 hours, monitor the patient very closely she was seen earlier by infectious ease as well as by urology, it was recommended to continue current treatment plan, we will start the patient on Glucerna 3 times every day, follow-up with the patient very closely. 06/27:78-year-old female with a past medical history significant for diabetes mellitus hypertension hyperlipidemia hypothyroidism presenting to the hospital for evaluation of nausea vomiting and also having hematuria patient symptoms started the day before presentation to the hospital he did start initially with nausea vomiting and subsequently did have hematuria and also urinary frequency and urgency as well as suprapubic discomfort patient did have chills in her presentation to the hospital patient was febrile with a temperature of 103 F patient was tachycardic but not hypotensive or hypoxic no need for supplemental oxygen did have a white count of 19.38 BUN and creatinine has been elevated electrolytes are normal liver enzymes are normal urine has been positive blood cultures came back positive with gram-negative bacilli; ID is on board 06/28/2024 Patient is seen and evaluated in room at bedside; discussed with nursing staff; no specific complaints reported Vital signs are reviewed and stable with temperature of 99.4, pulse 94, respiration 18 and blood pressure 165/74 Lab review reveals WBC of 7.4, hemoglobin of 7.3 and platelet count of 156, sod ium 137, potassium 3.6, BUN/creatinine of 21/1.51 -patient presented to hospital with sepsis in this patient who did have a fever tachycardia elevated white count meeting currently for SIRS/sepsis source is right-sided pyelonephritis with significant abnormality to the right kidney seen on the CAT scan did not mention any stones likely related to enteric gram- negative pathogen. -patient with gram-negative bacteremia source likely right-sided pyelonephritis. -patient did have improvement to feel better and white count is trending down -we will continue with Rocephin 2 g daily and plan to finish therapy with oral antibiotics. 06/29: Patient sitting up in bed in no apparent distress, she is not eating much, her hemoglobin is down to 7, she was seen in consultation by hematology-oncology recommended for patient to have an EGD, general surgery is on the case right now, we will try to treat the patient with with her infection, and try to schedule EGD as an outpatient at this point in time, patient appears to be better hemoglobin is stable at this time we will transfuse for hemoglobin is at 7 continue iron supplement at this point in time, follow-up with the patient as an outpatient next week. REVIEW OF SYSTEMS: Constitutional: Positive for fever, positive for chills, no night sweats. No weight change. Positive for weakness, fatigue or lethargy. No daytime sleepiness. EENT: No headache. Positive for blurred vision or double vision, no loss of vision. No loss of Hearing, no ringing in the ears, no dizziness. No nasal drainage or congestion. No epistaxis. No sore throat. Lungs: No shortness of breath, no cough, no sputum production. No wheezing. Reports dyspnea with activity. Cardiovascular: No chest pain, no lower extremity edema. No palpitations. No paroxysmal nocturnal dyspnea. No orthopnea. No lightheadedness or dizziness. No syncopal episodes. Abdominal: Reports abdominal pain. Positive for nausea, vomiting. No diarrhea. No constipation. No bloody or tarry stools reports loss of appetite. Genitourinary: No dysuria, increased frequency, urgency. No urinary retention. Musculoskeletal: No myalgias. No muscle weakness, no gait dysfunction, no albin quent falls. No back pain. No neck pain. Integumentary: No wounds, no lesions. No rash or pruritus. No unusual bruising. No change in hair or nails. Neurologic: No aphasia. No facial droop. No change in mentation. No head injury. No headache. No paralysis. No paresthesia. Psychiatric: No depression. No anxiety. No mood swings. Endocrine: No abnormal blood sugars. No weight change. PHYSICAL EXAMINATION: General: 78-year-old female laying down in bed in no distress HEENT: Head is atraumatic, normocephalic, pupils were equal round reactive to light and recommendation, extraocular muscle movement were intact, sclera nonicteric positive for edema in both eyelids,, conjunctivae were pale, mucous membranes of the mouth are somewhat dry. Neck: Supple, no JVP, normal carotid upstroke bilaterally, no lymphadenopathy. Chest: Decreased breath sounds at the bases, few rhonchi, no expiratory wheezes, no chest wall tenderness, no intercostal retractions. Heart: First heart sound is normal, second heart sounds normal there is systolic ejection murmur 2/6 located in the left sternal border. Abdomen: Soft, nontender, nondistended, positive bowel sounds. Extremities: There is no edema no calf tenderness DP +2 bilaterally. Neurologic examination: Patient is awake alert and oriented x3, cranial nerves II-12 appear grossly intact, muscle power were 5 out of 5 in upper extremities and 5 out of 5 in bilateral lower extremities, deep tendon reflexes normal bilaterally. ASSESSMENT AND PLAN: 1. Acute pyelonephritis with sepsis due to Proteus Mirabilis . Continue with ceftriaxone 2 g IV every 24 hours, will switch the patient to oral Ceftin 250 mg orally twice every day for 10 more days. 2. Proteus Mirabilis bacteremia continue patient on Rocephin 2 g piggyback every 24 hours, monitor the patient blood cultures in the next 24 hours. Then switch to oral Ceftin 250 mg orally twice every day for 10 days 3. Hypertension and hypertensive cardiovascular disease. Restart the patient back on her hydrochlorothiazide 12.5 mg once every day as well as losartan 100 m g once every day, monitor the patient symptoms very closely. 4. Mixed hyperlipidemia. Continue atorvastatin 20 mg once every day, monitor lipid panel, keep LDL 55-70. 5. Diabetes mellitus type 2. Continue patient on sliding scale insulin, continue patient also on Actos 30 mg orally once every day. 6. anemia multifactorial due to chronic kidney disease as well as possible GI loss. Continue iron supplement, patient will be seen in consultation by GI or general surgery for possible EGD. 7. Acute kidney injury on chronic kidney disease stage IIIb due to vasomotor nephropathy and acute tubular necrosis due to intractable nausea and vomiting. Appears to be back to baseline, discontinue IV fluid. 8. DVT prophylaxis. Continue patient on heparin 5000 units subcutaneous every 12 hours. 9. GI prophylaxis. Continue Protonix 40 mg orally once every day. 10. discharged home today and follow-up with me as an outpatient next week. 11. Plan for EGD as an outpatient after she finishes her oral antibiotic treatment. Objective - Vital Signs Vital signs: Vital Signs Temp 99.6 F 06/29/24 08:00 Pulse 88 06/29/24 08:00 Resp 14 06/29/24 08:00 BP 149/76 06/29/24 08:00 Pulse Ox 96 06/29/24 08:00 FiO2 Intake & Output 06/28/24 06/29/24 06/29/24 18:59 06:59 18:59 Intake Total 380 20 Output Total 400 980 Balance -20 -960 Weight 69.9 kg Intake: IV 20 20 Invasive Line 1 20 20 Oral 360 Output: Urine 400 980 Other: Voiding Method Toilet Toilet # Voids 1 # Bowel Movements 1 - Labs CBC & Chem 7: 06/29/24 04:53 06/28/24 07:07 Labs: Abnormal Lab Results - Last 24 Hours (Table) 06/28/24 06/28/24 06/29/24 Range/Units 16:17 20:14 04:53 RBC 2.19 L (4.10-5.20) 10*6/uL Hgb 7.0 L (12.0-15.0) g/dL Hct 21.1 L (37.2-46.3) % Immature Gran # 0.46 H (0.00-0.04) 10*3/uL POC Glucose (mg/dL) 182 H 161 H (70-110) mg/dL
--- NOTE | 2024-06-29 09:28 | P.DS ---
Providers Date of admission: 06/24/24 16:52 Expected date of discharge: 06/29/24 Attending physician: Stephan Head Consults: 06/24/24 17:03 Consult Physician Routine Consulting Provider: Agustin Brock Consult Reason/Comments: pyelonephritis, hematuria Do you want consulting provider notified?: Yes, Notify in am Consult Physician Routine Consulting Provider: Esha Pozo Consult Reason/Comments: pyelonephritis Do you want consulting provider notified?: Yes, Notify in am 06/27/24 13:10 Consult Physician Routine Consulting Provider: Román Montaño Consult Reason/Comments: anemia Do you want consulting provider notified?: Yes 06/28/24 13:47 Consult Physician Routine Consulting Provider: Jose Eduardo Villasenor Consult Reason/Comments: melena, iron def anemia, endoscopic evaluation Do you want consulting provider notified?: Yes Primary care physician: Stephan Head [facility] Course: HISTORY OF PRESENT ILLNESS: This is a 78-year-old female with a previous medical history significant for hypertension and hypertensive cardiovascular disease, mixed hyperlipidemia, diabetes mellitus type 2, chronic kidney disease stage IIIa, iron deficiency anemia, patient presented to the office yesterday because of right lower quadrant abdominal pain associated with intractable nausea and vomiting not able to keep anything down, she was apparently quite dehydrated, was not able to keep anything down, her heart rate was around 135, EKG showed sinus tachycardia, she was referred to go to the ER for IV fluid resuscitation, and a CT scan of the abdomen pelvis, this did show evidence of right stranding of the right the right kidney, without evidence of any acute stone, patient was started on IV antibiotic in the form of Rocephin 2 g piggyback every 24 hours, she was given IV fluid resuscitation in the form of normal saline at 100 cc an hour, she was given a bolus of normal saline of a liter in the ER, then she was given another 500 cc on the floor, her blood pressure continues to be soft at this time, blood cultures are positive for Proteus which would respond well to the ceftriaxone at this time, infectious disease consultation as well as urology consultation was obtained. 06/26: Patient sitting up in her bed complaining of increased nausea had episode of vomiting not able to eat much today, she is not able to drink much either, her daughter was at the bedside, she was updated about her current condition, she appeared to have some significant swelling in both eyelids and face, we will decrease her IV fluid to 50 cc an hour, monitor the patient symptoms very closely, continue ceftriaxone 2 g piggyback every 24 hours, monitor the patient very closely she was seen earlier by infectious ease as well as by urology, it was recommended to continue current treatment plan, we will start the patient on Glucerna 3 times every day, follow-up with the patient very closely. 06/27:78-year-old female with a past medical history significant for diabetes mellitus hypertension hyperlipidemia hypothyroidism presenting to the hospital for evaluation of nausea vomiting and also having hematuria patient symptoms started the day before presentation to the hospital he did start initially with nausea vomiting and subsequently did have hematuria and also urinary frequency and urgency as well as suprapubic discomfort patient did have chills in her presentation to the hospital patient was febrile with a temperature of 103 F patient was tachycardic but not hypotensive or hypoxic no need for supplemental oxygen did have a white count of 19.38 BUN and creatinine has been elevated electrolytes are normal liver enzymes are normal urine has been positive blood cultures came back positive with gram-negative bacilli; ID is on board 06/28/2024 Patient is seen and evaluated in room at bedside; discussed with nursing staff; no specific complaints reported Vital signs are reviewed and stable with temperature of 99.4, pulse 94, respira tion 18 and blood pressure 165/74 Lab review reveals WBC of 7.4, hemoglobin of 7.3 and platelet count of 156, sodium 137, potassium 3.6, BUN/creatinine of 21/1.51 -patient presented to hospital with sepsis in this patient who did have a fever tachycardia elevated white count meeting currently for SIRS/sepsis source is right-sided pyelonephritis with significant abnormality to the right kidney seen on the CAT scan did not mention any stones likely related to enteric gram- negative pathogen. -patient with gram-negative bacteremia source likely right-sided pyelonephritis. -patient did have improvement to feel better and white count is trending down -we will continue with Rocephin 2 g daily and plan to finish therapy with oral antibiotics. 06/29: Patient sitting up in bed in no apparent distress, she is not eating much, her hemoglobin is down to 7, she was seen in consultation by hematology-oncology recommended for patient to have an EGD, general surgery is on the case right now, we will try to treat the patient with with her infection, and try to schedule EGD as an outpatient at this point in time, patient appears to be better hemoglobin is stable at this time we will transfuse for hemoglobin is at 7 continue iron supplement at this point in time, follow-up with the patient as an outpatient next week. Discharge diagnoses: 1. Acute pyelonephritis with sepsis due to Proteus Mirabilis . 2. Proteus Mirabilis bacteremia 3. Hypertension and hypertensive cardiovascular disease. 4. Mixed hyperlipidemia. 5. Diabetes mellitus type 2. 6. anemia multifactorial due to chronic kidney disease as well as possible GI loss. 7. Acute kidney injury on chronic kidney disease stage IIIb due to vasomotor nephropathy and acute tubular necrosis 8. Plan for EGD as an outpatient. Patient Condition at Discharge: Stable Plan - Discharge Summary Discharge Rx Participant: No New Discharge Prescriptions: No Action Ferrous Sulfate [Feosol] 325 mg PO BID Pioglitazone [Actos] 30 mg PO W/LUNCH Atorvastatin [Lipitor] 20 mg PO DAILY Calcium Carbonate [Calcium] 600 mg PO BID Aspirin EC [Ecotrin Low Dose] 162 mg PO DAILY Ascorbic Acid [Vitamin C] 1,000 mg PO DAILY Olmesartan/Hydrochlorothiazide [Olmesartan-Hctz 40-12.5 mg Tab] 1 tab PO DAILY Discharge Medication List Ascorbic Acid [Vitamin C] 1,000 mg PO DAILY 01/10/22 [History] Aspirin EC [Ecotrin Low Dose] 162 mg PO DAILY 01/10/22 [History] Ferrous Sulfate [Feosol] 325 mg PO BID 01/10/22 [History] Olmesartan/Hydrochlorothiazide [Olmesartan-Hctz 40-12.5 mg Tab] 1 tab PO DAILY 01/10/22 [History] Pioglitazone [Actos] 30 mg PO W/LUNCH 01/10/22 [History] Atorvastatin [Lipitor] 20 mg PO DAILY 06/24/24 [History] Calcium Carbonate [Calcium] 600 mg PO BID 06/24/24 [History] Follow up Appointment(s)/Referral(s): Stephan Head MD [Primary Care Provider] - 1-2 days Agustin Brock MD [STAFF PHYSICIAN] - 4 Weeks
--- NOTE | 2024-06-29 11:11 | P.GSCN ---
History of Present Illness Consult date: 06/29/24 History of present illness: CHIEF COMPLAINT: Hematuria HISTORY OF PRESENT ILLNESS: This is a 78-year-old female who presented with nausea, vomiting, hematuria and right flank pain. She was found to have evidence of a pyelonephritis. She is on antibiotics. Patient reports 1 day of hematuria. Patient was anemic. Hemoglobin 8.2 on admission. Today hgb is 7.0. Hemoglobin has been stable over the last 3 to 4 days. She had reported black stools. But she does take iron. Patient reports she has had black stools since June 02. She denies any abdominal pain. And the symptoms that she presented with have improved. She has been receiving antibiotics. And they are planning discharge later today. Her last colonoscopy was in December 2021 and had reported colon polyps and internal hemorrhoids. Patient denies any prior history of EGD. Patient does take iron at home. Patient reports her last bowel movement was yesterday and it was small and dark green. Surgical service consulted for anemia, melena, iron deficiency anemia and EGD PAST MEDICAL HISTORY: Diabetes Mellitus, Eye Disorder, Hyperlipidemia, Hypertension, Thyroid Disorder PAST SURGICAL HISTORY: breast Surgery, Cholecystectomy, Tonsillectomy MEDICATIONS: See below ALLERGIES: See below SOCIAL HISTORY: No illicit drug use. REVIEW OF SYSTEMS: CONSTITUTIONAL: Denies fever or chills. HEENT: Denies blurred vision, vision changes, or eye pain. Denies hemoptysis CARDIOVASCULAR: Denies chest pain or pressure. RESPIRATORY: No shortness of breath. GASTROINTESTINAL: See HPI for pertinent findings HEMATOLOGIC: Denies bleeding disorders. GENITOURINARY: Denies any blood in urine or increased urinary frequency. SKIN: Denies pruitis. Denies rash. PHYSICAL EXAM: VITAL SIGNS: Reviewed GENERAL: Well-developed in no acute distress. HEENT: No sclera icterus. Extraocular movements grossly intact. Moist buccal mucosa. Head is atraumatic, normocephalic. No nasal drainage. ABDOMEN: Soft. Nondistended. Nontender NEUROLOGIC: Alert and oriented. Cranial nerves II through XII grossly intact. LABORATORY DATA: WBC 19 down to 8.28 Hgb 8.2-7.0 platelets 158 Sodium 137 potassium 3.6 creatinine 1.51 Iron low at 13 IMAGING: CT scan abdomen pelvis reports marked string-like density in the right pararenal space but no definite calcification in the right collecting system or ureter and no evidence of hydronephrosis. Findings could be related to prior obstruction/hydronephrosis of the right kidney or inflammatory process in the right kidney. ASSESSMENT: 1. Anemia, iron deficiency anemia and melanotic stools. Patient does take oral iron PLAN: - Patient here for pyelonephritis and scheduled for discharge today. She is anemic. No active signs of bleeding at this time. Endoscopy recommended. Will have patient follow-up for outpatient EGD - Continue PPI Physician [employer] note has been reviewed by physician. Signing provider agrees with the documented findings, assessment, and plan of care. Past Medical History Past Medical History: Diabetes Mellitus, Eye Disorder, Hyperlipidemia, Hypertension, Thyroid Disorder Additional Past Medical History / Comment(s): low iron. CATARACT LT EYE History of Any Multi-Drug Resistant Organisms: None Reported Past Surgical History: Breast Surgery, Cholecystectomy, Tonsillectomy Additional Past Surgical History / Comment(s): CYSTS REMOVED FROM BILAT BREASTS. CATARACT RT EYE REMOVED WITH LENS IMPLANTS Past Anesthesia/Blood Transfusion Reactions: No Reported Reaction Past Psychological History: No Psychological Hx Reported Smoking Status: Never smoker Past Alcohol Use History: None Reported Past Drug Use History: None Reported - Past Family History Sister(s) Family Medical History: Cancer Brother(s) Family Medical History: Cancer Additional Family Medical History / Comment(s): 2 BROTHERS WITH CANCER Medications and Allergies Home Medications Medication Instructions Recorded Confirmed Type Ascorbic Acid [Vitamin C] 1,000 mg PO DAILY 01/10/22 06/24/24 History Aspirin EC [Ecotrin Low Dose] 162 mg PO DAILY 01/10/22 06/24/24 History Ferrous Sulfate [Iron (65 MG 325 mg PO BID 01/10/22 06/24/24 History Elemental)] Olmesartan/Hydrochlorothiazide 1 tab PO DAILY 01/10/22 06/24/24 History [Olmesartan-Hctz 40-12.5 mg Tab] Pioglitazone [Actos] 30 mg PO W/LUNCH 01/10/22 06/24/24 History Atorvastatin [Lipitor] 20 mg PO DAILY 06/24/24 06/24/24 History Calcium Carbonate [Calcium] 600 mg PO BID 06/24/24 06/24/24 History Cefuroxime [Ceftin] 250 mg PO BID 10 Days #20 tab 06/29/24 Rx Pantoprazole [Protonix] 40 mg PO DAILY #30 tab 06/29/24 Rx Allergies Allergy/AdvReac Type Severity Reaction Status Date / Time sitagliptin [From ] AdvReac Diarrhea Verified 06/24/24 17:57 Surgical - Exam Vital Signs Temp Pulse Resp BP Pulse Ox 103 F H 127 H 18 110/52 95 06/24/24 13:04 06/24/24 13:04 06/24/24 13:04 06/24/24 13:04 06/24/24 13:04 Results - Labs 06/29/24 04:53 06/28/24 07:07 Abnormal Lab Results - Last 24 Hours (Table) 06/28/24 06/28/24 06/29/24 Range/Units 16:17 20:14 04:53 RBC 2.19 L (4.10-5.20) 10*6/uL Hgb 7.0 L (12.0-15.0) g/dL Hct 21.1 L (37.2-46.3) % Immature Gran # 0.46 H (0.00-0.04) 10*3/uL POC Glucose (mg/dL) 182 H 161 H (70-110) mg/dL
[2024-06-29 13:43] LABS: Free Kappa Lt Chain Qnt, Serum 4.12 mg/dL (0.33-1.94); Free Lambda Lt Chain Qnt, Seru 3.62 mg/dL (0.57-2.63)
[2024-06-29 19:06] LABS: ANA Pattern Homogenous
--- NOTE | 2024-06-30 13:55 | P.PN ---
Subjective Progress Note Date: 06/29/24 Principal diagnosis: Reason for follow-up is sepsis and pyelonephritis Patient is a 78-year-old female with a past medical history significant for diabetes mellitus hypertension hyperlipidemia hypothyroidism presenting to the hospital for evaluation of nausea vomiting and also having hematuria, has been diagnosed with sepsis secondary to right-sided pyelonephritis. On today's evaluation that is 06/29/2024,the patient remains to be afebrile, patient is on room air not requiring supplemental oxygen and denies any shortness of breath no chest pain or cough.Patient denies having any nausea or vomiting, no abdominal pain and no diarrhea has been reported, mention feeling better. Patient white count is 8.28 Objective - Vital Signs Vital signs: Vital Signs Temp 99 F 06/29/24 04:55 Pulse 92 06/29/24 04:55 Resp 17 06/29/24 04:55 BP 154/72 06/29/24 04:55 Pulse Ox 94 L 06/29/24 04:55 FiO2 Intake & Output 06/28/24 06/29/24 06/29/24 18:59 06:59 18:59 Intake Total 380 20 Output Total 400 980 Balance -20 -960 Weight 69.9 kg Intake: IV 20 20 Invasive Line 1 20 20 Oral 360 Output: Urine 400 980 Other: Voiding Method Toilet Toilet # Voids 1 # Bowel Movements 1 - Exam GENERAL DESCRIPTION: An elderly female lying in bed in no distress RESPIRATORY SYSTEM: Unlabored breathing , decreased breath sounds at bases HEART: S1 S2 regular rate and rhythm , ABDOMEN: Soft , no tenderness EXTREMITIES: No edema feet - Labs CBC & Chem 7: 06/29/24 04:53 06/28/24 07:07 Labs: Abnormal Lab Results - Last 24 Hours (Table) 06/27/24 06/27/24 06/27/24 Range/Units 13:20 13:20 13:20 RBC (4.10-5.20) 10*6/uL Hgb (12.0-15.0) g/dL Hct (37.2-46.3) % MCV (80.0-97.0) fL MCHC (32.0-37.0) g/dL Immature Gran # (0.00-0.04) 10*3/uL Haptoglobin 265.0 H (31.2-198.0) mg/dL Chloride (98-107) mmol/L Carbon Dioxide (22-30) mmol/L BUN (7-17) mg/dL Creatinine (0.52-1.04) mg/dL POC Glucose (mg/dL) (70-110) mg/dL Iron 13 L (50-170) UG/DL TIBC 174 L (228-460) UG/DL % Saturation 7.47 L (12.00-45.00) Transferrin 124.0 L (204.0-354.0) mg/dL Total Protein (PEP) 4.6 L (6.2-8.2) g/dL Vitamin B12 1086.0 H (200.0-944.0) pg/mL 06/28/24 06/28/24 06/28/24 Range/Units 07:07 07:07 16:17 RBC 2.39 L (4.10-5.20) 10*6/uL Hgb 7.3 L (12.0-15.0) g/dL Hct 23.2 L (37.2-46.3) % MCV 97.1 H (80.0-97.0) fL MCHC 31.5 L (32.0-37.0) g/dL Immature Gran # (0.00-0.04) 10*3/uL Haptoglobin (31.2-198.0) mg/dL Chloride 109 H (98-107) mmol/L Carbon Dioxide 21 L (22-30) mmol/L BUN 21 H (7-17) mg/dL Creatinine 1.51 H (0.52-1.04) mg/dL POC Glucose (mg/dL) 182 H (70-110) mg/dL Iron (50-170) UG/DL TIBC (228-460) UG/DL % Saturation (12.00-45.00) Transferrin (204.0-354.0) mg/dL Total Protein (PEP) (6.2-8.2) g/dL Vitamin B12 (200.0-944.0) pg/mL 06/28/24 06/29/24 Range/Units 20:14 04:53 RBC 2.19 L (4.10-5.20) 10*6/uL Hgb 7.0 L (12.0-15.0) g/dL Hct 21.1 L (37.2-46.3) % MCV (80.0-97.0) fL MCHC (32.0-37.0) g/dL Immature Gran # 0.46 H (0.00-0.04) 10*3/uL Haptoglobin (31.2-198.0) mg/dL Chloride (98-107) mmol/L Carbon Dioxide (22-30) mmol/L BUN (7-17) mg/dL Creatinine (0.52-1.04) mg/dL POC Glucose (mg/dL) 161 H (70-110) mg/dL Iron (50-170) UG/DL TIBC (228-460) UG/DL % Saturation (12.00-45.00) Transferrin (204.0-354.0) mg/dL Total Protein (PEP) (6.2-8.2) g/dL Vitamin B12 (200.0-944.0) pg/mL Assessment and Plan (1) Pyelonephritis Status: Acute Priority: High Code(s): N12 - TUBULO-INTERSTITIAL NEPHRITIS, NOT SPCF ACUTE OR CHRONIC SNOMED Code(s): 24315091 (2) Sepsis Status: Acute Priority: High Code(s): A41.9 - SEPSIS, UNSPECIFIED ORGANISM SNOMED Code(s): 16705738 Plan: 1patient presented to hospital with sepsis in this patient who did have a fever tachycardia elevated white count meeting currently for SIRS/sepsis source is right-sided pyelonephritis with significant abnormality to the right kidney seen on the CAT scan did not mention any stones likely related to enteric gram- negative pathogen. 2patient with Proteus bacteremia source likely right-sided pyelonephritis. 3patient did have improvement to feel better and white count normalized, plan is to finish therapy with 10-day course of oral Ceftin she requested for Zofran which has been prescribed Dictation was produced using [employer] dictation software. please excuse any grammatical, word or spelling errors. Time with Patient: Less than 30
[2024-06-30 14:52] LABS: Albumin 2.28 g/dL (3.80-4.90); Gamma Globulin 0.63 g/dL (0.70-1.50)
== END 2024-06-29 12:40 | disposition home or self-care (01) | DRG 871 ==
LOC: EC 13:01 → 4SSUR 16:52 → 3SCARD 18:16
PROVIDERS: ADMIT Internal Medicine; ATTEND Internal Medicine
DX: A41.59 Other Gram-negative sepsis (principal); N17.0 Acute kidney failure with tubular necrosis; D69.6 Thrombocytopenia, unspecified; D63.1 Anemia in chronic kidney disease; D50.9 Iron deficiency anemia, unspecified; E11.22 Type 2 diabetes mellitus with diabetic chronic kidney disease; N18.32 Chronic kidney disease, stage 3b; E03.9 Hypothyroidism, unspecified; I13.10 Hypertensive heart and chronic kidney disease without heart failure, with stage 1 through stage 4 chronic kidney disease, or unspecified chronic kidney disease; N10 Acute pyelonephritis; E78.2 Mixed hyperlipidemia; R11.2 Nausea with vomiting, unspecified; R31.0 Gross hematuria; Z79.82 Long term (current) use of aspirin; Z79.84 Long term (current) use of oral hypoglycemic drugs; Z88.8 Allergy status to other drugs, medicaments and biological substances; Z79.899 Other long term (current) drug therapy; Z90.49 Acquired absence of other specified parts of digestive tract
CPT/HCPCS: 36415; 74176; 80048; 80053; 81001; 82607; 82668; 82728; 82746; 82784; 83010; 83036; 83540; 83550; 83605; 83615; 83735; 83883; 84165; 85025; 85027; 85045; 85610; 85730; 86038; 86039; 86334; 86431; 87040; 87077; 87086; 87186; 93005; 96361; 96374; 96375; 99285

== ENCOUNTER → 2024-07-07 | Outpatient (CLI) | payer MEDICARE ==
[2024-07-07 17:57] LABS: Basophils # (A) 0.06 X 10*3/uL (0.00-0.10); Basophils % (A) 0.7 %; Eosinophils # (A) 0.34 X 10*3/uL (0.04-0.35); Eosinophils % (A) 4.2 %; HCT 25.4 % (37.2-46.3); HGB 7.7 g/dL (12.0-15.0); Lymphocytes # (A) 0.98 X 10*3/uL (0.90-5.00); Lymphocytes % (A) 12.2 %; MCH 29.4 pg (27.0-32.0); MCHC 30.3 g/dL (32.0-37.0); MCV 96.9 FL (80.0-97.0); Mean Platelet Volume 10.3 FL (9.5-12.2); Monocytes # (A) 0.58 X 10*3/uL (0.20-1.00); Monocytes % (A) 7.2 %; NRBC Per 100 WBC 0 X 10*3/uL (0.00-0.01); Neutrophils # (A) 5.98 X 10*3/uL (1.80-7.70); Neutrophils % (A) 74.8 %; Platelet Count 346 X 10*3/uL (140-440); RBC 2.62 X 10*6/uL (4.10-5.20); RDW 14.7 % (11.5-14.5); WBC 8.01 X 10*3/uL (4.50-10.00)
[2024-07-07 18:21] LABS: % Iron Saturation 20.55 (12.00-45.00); ALT 19 U/L (8-44); AST 23 U/L (13-35); Albumin 3.6 g/dL (3.8-4.9); Albumin/Globulin Ratio 1.33 Ratio (1.60-3.17); Alkaline Phosphatase 113 U/L (41-126); BUN/Creat Ratio 14.42 Ratio (12.00-20.00); Blood Urea Nitrogen 17.3 mg/dL (9.0-27.0); Calcium 10.4 mg/dL (8.7-10.3); Carbon Dioxide 26.8 mmol/L (21.6-31.8); Chloride 99 mmol/L (96-109); Globulin 2.7 g/dL (1.6-3.3); Glucose 101 mg/dL (70-110); Iron 52 UG/DL (50-170); Potassium 4.3 mmol/L (3.5-5.5); Sodium 137 mmol/L (135-145); Total Bilirubin 0.4 mg/dL (0.3-1.2); Total Iron Binding Capacity 253 UG/DL (228-460); Total Protein 6.3 g/dL (6.2-8.2)
[2024-07-07 19:16] LABS: Anti-DNA, DS unit <1.0 IU/mL; DNA Double-Stranded Negative (Negative)
== END | disposition home or self-care (01) ==
LOC: LABWHC1 12:43
PROVIDERS: ATTEND Internal Medicine
DX: I10 Essential (primary) hypertension (principal); D50.0 Iron deficiency anemia secondary to blood loss (chronic); R76.0 Raised antibody titer
CPT/HCPCS: 36415; 80053; 82728; 83516; 83540; 83550; 85025; 86160; 86162; 86225; 86235

== ENCOUNTER → 2024-08-04 | Outpatient (CLI) | payer MEDICARE ==
--- NOTE | 2024-08-04 10:46 | MM ---
Reason for Exam: Screening (asymptomatic). Last mammogram was performed 1 year(s) and 2 month(s) ago. Patient History: Menarche at age 13. First Full-Term at age 24. Postmenopausal. Hormonal Contraceptives for 1 year from age 23 until age 24. 11/26/2003, Excisional Biopsy on the Right side. 11/26/2003, Excisional Biopsy on the Left side. 1970, Bilateral Benign Excisional Biopsy. 08/09/2005, Benign Core Biopsy on the right side. 08/09/2005, Benign Core Biopsy on the right side. Sister had breast cancer, age 40. Risk Values: Anna 5 year model risk: 3.1%. NCI Lifetime model risk: 5.6%. Prior Study Comparison: 09/23/2018 Right Diagnostic Mammogram, [facility]. 03/19/2019 Bilateral Diagnostic Mammogram, [facility]. 05/16/2020 Bilateral Screening Mammogram, [facility]. 06/08/2021 Bilateral Screening Mammogram, [facility]. 06/11/2022 Bilateral MG 3D screening mammo w/cad, [facility]. 06/13/2023 Bilateral MG 3D screening mammo w/cad, [facility]. Tissue Density: The breasts are heterogeneously dense, which may obscure small masses. Findings: Analyzed By CAD. Redemonstrated chronic nodularity on both sides. Associated dystrophic/popcorn calcifications suggesting underlying fibroadenomas. Some progressive dystrophic calcification right upper outer quadrant with an adjacent microclip indicating prior biopsy. There is no suspicious group of microcalcifications or new suspicious mass in either breast. Overall Assessment: Benign, BI-RAD 2 Management: Screening Mammogram of both breasts in 1 year. See note below in regards to the patient's increased 5 year Anna score. Patient should continue monthly self-breast exams. A clinical breast exam by your physician is recommended on an annual basis. This exam should not preclude additional follow-up of suspicious palpable abnormalities. Note on Anna scores and lifetime risk: 1. A Anna score greater than 3% is considered moderate risk. If this is the case, consider specialist referral to assess eligibility for a risk reducing agent. 2. If overall lifetime risk for the development of breast cancer is 20% or higher, the patient may qualify for future screening with alternating mammogram and breast MRI. [facility], , 08/04/2024 10:43 AM. Electronically signed and approved by: Uma Aguilar M.D. Radiologist
== END | disposition home or self-care (01) ==
LOC: RADMAMWWP 09:30
PROVIDERS: ATTEND Internal Medicine
DX: Z12.31 Encounter for screening mammogram for malignant neoplasm of breast (principal); R92.333 Mammographic heterogeneous density, bilateral breasts; Z78.0 Asymptomatic menopausal state; Z80.3 Family history of malignant neoplasm of breast; Z92.0 Personal history of contraception
CPT/HCPCS: 77063; 77067